=== PATIENT | female | born 1980 | race African-American/Black ===

== ENCOUNTER 2019-08-12 20:13 | Emergency (ER) | payer OTHER ==
[~2019-08-12] VITALS: Ht 165.1 cm; Wt 111.1 kg
--- OUTSIDE RECORDS SUMMARY | 2019-08-12 20:16 | XMS REPORT ---
[facility] Address Unknown Phone Unavailable Care Team Providers Care Flying Squad Worker Name Role Phone RICHARD, FATUMA CHIKA Unavailable Unavailable Payers Payer Name Policy Type Policy Number Effective Date Expiration Date Problems This patient has no known problems. Allergies, Adverse Reactions, Alerts Allergy Name Allergy Type Status Severity Reaction(s) Onset Date Inactive Date Treating Clinician Comments No Known Allergies DA Active U 2019-07-03 00:00:00 No Known Allergies DA Active U 2012-03-15 00:00:00 Medications This patient has no known medications. Results Test Description Test Time Test Comments Text Results Atomic Results Result Comments TROPONIN I RAPID 2019-07-03 11:50:00 TROPONIN I RAPID (test code=TROPIRAP) 0.00 ng/mL 0.00-0.08 RAPID [id number] 08:21:00* Test Item Value Reference Range Comments RAPID CKMB (BEAKER) (test zigb=3719) < ng/mL 0.0-4.3 RAPID TROPONIN [id number] 08:21:00* Test Item Value Reference Range Comments RAPID TROPONIN I (BEAKER) (test ynvv=2965) < ng/mL <0.05 SCREEN, [id number] 08:20:00* Test Item Value Reference Range Comments TEST URINE (BEAKER) (test gqzo=753) Negative CBC W/PLT COUNT & AUTO [id number] 08:17:00* Test Item Value Reference Range Comments WHITE BLOOD CELL COUNT (BEAKER) (test gwuv=413) 5.3 10e3/ L 4.0-10.0 RED BLOOD CELL COUNT (BEAKER) (test lggs=224) 4.43 10e6/ L 4.00-5.00 HEMOGLOBIN (BEAKER) (test ffuv=269) 13.9 g/dL 12.0-15.0 HEMATOCRIT (BEAKER) (test qpfa=526) 41.4 % 36.0-45.0 MEAN CORPUSCULAR VOLUME (BEAKER) (test jzac=762) 93.5 fL 82.0-99.0 MEAN CORPUSCULAR HEMOGLOBIN (BEAKER) (test mxid=608) 31.5 pg 27.0-33.0 MEAN CORPUSCULAR HEMOGLOBIN CONC (BEAKER) (test ihfw=755) 33.7 g/dL 32.0-36.0 RED CELL DISTRIBUTION WIDTH (BEAKER) (test nofl=718) 12.8 % 10.3-14.2 PLATELET COUNT (BEAKER) (test glvt=504) 299 10e3/ L 150-430 MEAN PLATELET VOLUME (BEAKER) (test zxvj=268) 7.3 fL 6.5-10.5 NEUTROPHILS RELATIVE PERCENT (BEAKER) (test tayf=221) 53 % LYMPHOCYTES RELATIVE PERCENT (BEAKER) (test mikm=052) 38 % MONOCYTES RELATIVE PERCENT (BEAKER) (test ttht=133) 7 % EOSINOPHILS RELATIVE PERCENT (BEAKER) (test sbly=963) 2 % BASOPHILS RELATIVE PERCENT (BEAKER) (test wyuw=722) 1 % NEUTROPHILS ABSOLUTE COUNT (BEAKER) (test xlyj=715) 2.83 10e3/ L 1.80-8.00 LYMPHOCYTES ABSOLUTE COUNT (BEAKER) (test brkl=457) 2.00 10e3/ L 1.48-4.50 MONOCYTES ABSOLUTE COUNT (BEAKER) (test ylmw=229) 0.35 10e3/ L 0.00-1.30 EOSINOPHILS ABSOLUTE COUNT (BEAKER) (test mffw=575) 0.09 10e3/ L 0.00-0.50 BASOPHILS ABSOLUTE COUNT (BEAKER) (test hkdj=164) 0.03 10e3/ L 0.00-0.20 PT/[id number] 08:15:00* Test Item Value Reference Range Comments PROTIME (BEAKER) (test hhdj=697) 9.3 seconds 9.8-12.0 INR (BEAKER) (test qnld=566) 0.9 <=5.9 PARTIAL THROMBOPLASTIN TIME (BEAKER) (test fwim=585) 23.5 seconds 25.8-34.5 RECOMMENDED COUMADIN/WARFARIN INR THERAPY RANGESSTANDARD DOSE: 2.0 - 3.0 Inclu juancho: PROPHYLAXIS for venous thrombosis, systemic embolization; TREATMENT for julio césar ous thrombosis and/or pulmonary embolus.HIGH RISK: Target INR is 2.5-3.5 for pat ients with mechanical heart valves.BASIC METABOLIC [id number] 08:12:00* Test Item Value Reference Range Comments SODIUM (BEAKER) (test tsfa=258) 142 meq/L 135-148 POTASSIUM (BEAKER) (test snxs=364) 3.9 meq/L 3.6-5.5 CHLORIDE (BEAKER) (test uzhe=239) 103 meq/L 98-106 CO2 (BEAKER) (test mcui=437) 27 meq/L 24-32 BLOOD UREA NITROGEN (BEAKER) (test uvjw=869) 14 mg/dL 10-26 CREATININE (BEAKER) (test yaoq=303) 1.04 mg/dL 0.50-1.20 GLUCOSE RANDOM (BEAKER) (test prix=653) 99 mg/dL 70-110 CALCIUM (BEAKER) (test ywwx=724) 9.4 mg/dL 8.5-10.5 EGFR (BEAKER) (test hzva=2089) 72 mL/min/1.73 sq m ESTIMATED GFR IS NOT ACCURATE CREATININE CLEARANCE IN PREDICTING GLOMERULAR FILTRATION RATE. ESTIMATED GFR IS NOT APPLICABLE FOR DIALYSIS PATIENTS. CREATINE KINASE (CK)2016-11-09 08:12:00* Test Item Value Reference Range Comments CREATINE KINASE TOTAL (BEAKER) (test krgt=770) 50 U/L 25-235
[2019-08-12] MEDS ORDERED: HYDROCODONE/APAP 5MG-325MG TAB PO ONE (22:00)
[2019-08-12] MEDS ORDERED: PREDNISONE 20 MG TAB PO ONE (22:00)
[2019-08-12] MEDS ORDERED: HYDROCODONE/APAP 5MG-325MG TAB ONE (22:14)
[2019-08-12] MEDS ORDERED: PREDNISONE 20 MG TAB ONE (22:14)
--- NOTE | 2019-08-12 22:58 | Diagnostic Imaging Report ---
X-ray left ankle 3 views; x-ray left foot 3 views HISTORY: Pain. Midfoot pain COMPARISON: None available. FINDINGS: Bones: No acute displaced fracture. Osseous alignment is within normal limits. Joints: The joint spaces are well-maintained. Dorsal tarsal osteophytes. Soft tissues: Achilles and plantar calcaneal calcified enthesophytes. Mild soft tissue swelling of the mid/forefoot. IMPRESSION: 1. No acute radiographic osseous abnormality. 2. Plantar and Achilles tendon calcaneal enthesopathy. 3. Mild soft tissue swelling of the mid/forefoot. 4. Mild degenerative changes in the midfoot. Signed by: Philippe Karimi DO on 08/12/2019 10:55 PM
[2019-08-12] MEDS ORDERED: MEDROL4 MG PO (23:26)
[2019-08-12] MEDS ORDERED: NAPROXEN250 MG PO (23:28)
[2019-08-12] MEDS ORDERED: TYLENOL WITH C1 EACH PO (23:29)
[2019-08-13 03:20] VITALS: BP 119/85
== END 2019-08-13 | disposition home or self-care (01) ==
LOC: FSED 20:13
DX: M25.572 Pain in left ankle and joints of left foot (principal); M19.072 Primary osteoarthritis, left ankle and foot; R26.2 Difficulty in walking, not elsewhere classified; I10 Essential (primary) hypertension
CPT/HCPCS: 73610; 73630; 99283; J7512

== ENCOUNTER 2020-01-29 23:54 | Emergency (ER) | payer BC, OTHER ==
[~2020-01-29] VITALS: Ht 165.1 cm; Wt 106.6 kg
[~2020-01-29 23:54] MED LIST: MEDROL4 MG PO; NAPROXEN250 MG PO; TYLENOL WITH C1 EACH PO
--- OUTSIDE RECORDS SUMMARY | 2020-01-29 23:57 | XMS REPORT | Summary of Care ---
Author Author [facility] Primary Care [facility] Organization [facility] Address Unknown Phone Unavailable Care Team Providers Care Oil Pipeline Dispatcher Name Role Phone Kenzie Simmons PCP Encounter HQ Amberntr_charley(FIN) [id number] Date(s): 12/11/19 - 12/12/[address] [place], [place] [address]- [phone] Vital Signs No data available for this section Problem List Condition Effective Dates Status Health Status Informan t Abnormal cytology 12/05/10 Active findings1 Abnormal vaginal 11/28/12 Active bleeding2 Acute upper Resolved respiratory infection3 Alopecia4 11/04/13 Active Ankle pain5, 6 01/27/15 Active Bacterial vaginosis7 09/28/11 Resolved Benign Active hypertension(Confirm ed)8 Chest pain9 07/30/13 Active Xnnlxwslix50 04/07/14 Active Aaumwm26 12/27/12 Active Electrocardiogram 12/27/12 Active bphjyvng98 Oqfitnlr41 07/30/14 Active Szxnklsyfhmjnh57 02/04/14 Active Hyperlipidemia(Confi Active rmed) Impaired glucose 07/30/14 Active qurdculnq98 Joint pain16, 17 01/27/15 Active Microalbuminuria(Con Active firmed) Microscopic 11/13/14 Active jqrpngsek03, 19 Xxugehh65 12/05/10 Active Otitis qodbyey67 03/18/12 Resolved Patient 05/31/12 Active noncompliance - pruqxan24 Knnqccnxxnk72 03/18/12 Resolved Physical examination 10/30/14 Active awcqihhrz23, 25 Polycystic mfpfaze67 12/27/12 Active Vitamin D 07/30/13 Active vtwmomcirm87 1Data migrated from [employer] on 02/23/15. 2Data migrated from [employer] on 02/23/15. 3Data migrated from [employer] on 04/09/15. 4Data migrated from [employer] on 02/23/15. 5Data migrated from [employer] on 03/31/15. 6Data migrated from [employer] on 02/23/15. 7Data migrated from [employer] on 04/09/15. 8Data migrated from [employer] on 02/23/15. 9Data migrated from [employer] on 02/23/15. 10Data migrated from [employer] on 02/23/15. 11Data migrated from [employer] on 02/23/15. 12Data migrated from [employer] on 02/23/15. 13Data migrated from [employer] on 02/23/15. 14Data migrated from [employer] on 02/23/15. 15Data migrated from [employer] on 02/23/15. 16Data migrated from [employer] on 03/31/15. 17Data migrated from [employer] on 02/23/15. 18Data migrated from [employer] on 03/31/15. 19Data migrated from [employer] on 02/23/15. 20Data migrated from [employer] on 02/23/15. 21Data migrated from [employer] on 04/09/15. 22Data migrated from [employer] on 02/23/15. 23Data migrated from [employer] on 04/09/15. 24Data migrated from [employer] on 03/31/15. 25Data migrated from [employer] on 02/23/15. 26Data migrated from [employer] on 02/23/15. 27Data migrated from [employer] on 02/23/15. Allergies, Adverse Reactions, Alerts No Known Medication Allergies Medications No data available for this section Results No data available for this section Immunizations Given and Recorded Vaccine Date Status Refusal Reason tetanus-diphtheria toxoids1 09/26/10 Given diphtheria/pertussis, acel/tetanus adult2 09/26/10 Given 1Result Comment: adacel. Migrated from OBS VIS: 08-11-08 given September 26, 2010. ; Data migrated from [employer] on 10/25/2015. 2Result Comment: adacel. Migrated from OBS ; Data migrated from [employer] on 10/25/2015. Procedures No data available for this section Social History Social History Type Response Alcohol Current, Type Wine, Liquor. Frequency: 1-2 times per month. Employment/School Status: Employed. Exercise Exercise duration: 60. Exe rcise frequency: 1-2 times/week. Exercise type: Walking.1 Smoking Status Current some day smoker; Ty pe: Cigars; Exposure to Tobacco Smoke None; Exposure to Tobacco Smoke self; Cigaret te Smoking Last 365 Days Yes; Reg Smoking Cessation Counseling Yes2 entered on: 07/07/19 1crunches/push ups 2Patinet states that she smokes cigars sometimes, a few times a month. Assessment and Plan No data available for this section
--- OUTSIDE RECORDS SUMMARY | 2020-01-29 23:57 | XMS REPORT | Summary of Care ---
Author Author [facility] Address Unknown Phone Unavailable Encounter HQ Anali(MARVIN) [id number] Date(s): 03/26/17 - 03/26/17 [facility] [address] [place] [address]- [facility] [phone] Discharge Diagnosis: Actinic otitis externa of left ear Discharge Diagnosis: Acute left otitis media Discharge Disposition: Home or Self Care Attending Physician: Sammy Benavidez MD Vital Signs 1 2 3 Most recent to oldest [Reference Range]: 98.7 DegF (03/26/17 11:38 PM) 98.8 DegF (03/26/17 8:41 PM) Temperature Oral [96.4-99.1 DegF] 163/89 mmHg *HI* (03/26/17 11:38 PM) 160/96 mmHg *HI* (03/26/17 10:16 PM) 212/138 mmHg *HI* (03/26/17 8:41 PM) Blood Pressure [90-140/60-90 mmHg] 18 BRMIN (03/26/17 11:38 PM) 18 BRMIN (03/26/17 10:16 PM) 17 BRMIN (03/26/17 8:41 PM) Respiratory Rate [14-20 BRMIN] 91 bpm (03/26/17 11:38 PM) 88 bpm (03/26/17 10:16 PM) 92 bpm (03/26/17 8:41 PM) Peripheral Pulse Rate [60-100 bpm] 102.075 kg (03/26/17 8:41 PM) Weight Problem List Condition Effective Dates Status Health Status Informan t Abnormal cytology 12/05/10 Active findings1 Abnormal vaginal 11/28/12 Active bleeding2 Acute upper Resolved respiratory infection3 Alopecia4 11/04/13 Active Ankle pain5, 6 01/27/15 Active Bacterial vaginosis7 09/28/11 Resolved Benign hypertension8 Active Chest pain9 07/30/13 Active Zbhvymrcgj43 04/07/14 Active Xdjagw02 12/27/12 Active Electrocardiogram 12/27/12 Active hkbcodmb04 Lcjakhzs06 07/30/14 Active Qbkoyaepfnlkwn15 02/04/14 Active Impaired glucose 07/30/14 Active dnwoicslh90 Joint pain16, 17 01/27/15 Active Microscopic 11/13/14 Active puipwmosg42, 19 Uyzwfyn50 12/05/10 Active Otitis iubhvzd48 03/18/12 Resolved Patient 05/31/12 Active noncompliance - etkaima71 Xtrlwreqgtm99 03/18/12 Resolved Physical examination 10/30/14 Active tulsdexbr88, 25 Polycystic vvofepb78 12/27/12 Active Vitamin D 07/30/13 Active jtrdjdliag95 1Data migrated from [employer] on 02/23/15. [...] [employer] on 02/23/15. Allergies, Adverse Reactions, Alerts Substance Reaction Severity Status NKDA Active Medications Cortisporin Otic solution 2 drp, LEFT EAR, QID, X 7 day, # 10 mL, 0 Refill(s) Start Date: 03/26/17 Stop Date: 04/02/17 Status: Ordered Motrin 800 mg oral tablet 800 mg = 1 tab, PO, Q8H, PRN Pain, Take with food, X 7 day, # 21 tab, 0 Refill(s ) Start Date: 03/26/17 Stop Date: 04/02/17 Status: Ordered penicillin V potassium 500 mg oral tablet 500 mg = 1 tab, PO, BID, X 10 day, # 20 tab, 0 Refill(s) Start Date: 03/26/17 Stop Date: 04/05/17 Status: Ordered tramadol 50 mg oral tablet 50 mg, 1 tab, Route: PO, Drug form: TAB, ONCE, Dosing Weight 102.075, kg, Priori ty: STAT, Start date: 03/26/17 21:51:00 CDT, Stop date: 03/26/17 21:51:00 CDT Notes: Not to exceed 400mg/day. (Same As: Ultram) Start Date: 03/26/17 Stop Date: 03/26/17 Status: Completed tramadol 50 mg oral tablet 50 mg = 1 tab, PO, Q6H, PRN Pain, X 5 day, # 20 tab, 0 Refill(s) Start Date: 03/26/17 Stop Date: 03/31/17 Status: Ordered Tylenol 1,000 mg, 2 tab, Route: PO, Drug form: TAB, ONCE, Dosing Weight 102.075, kg, Sta rt date: 03/26/17 21:51:00 CDT, Stop date: 03/26/17 21:51:00 CDT Notes: Max acetaminophen 4000 mg/day (4 gm/day). (Same as: Tylenol Extra Streng th) Start Date: 03/26/17 Stop Date: 03/26/17 Status: Completed Results No data available for this section Immunizations Given and Recorded Vaccine Date Status Refusal Reason diphtheria/pertussis, acel/tetanus adult1 09/26/10 Given tetanus-diphtheria toxoids2 09/26/10 Given 1Result Comment: adacel. Migrated from OBS ; Data migrated from [employer] on 10/25/2015. 2Result Comment: adacel. Migrated from [employer] VIS: 08-11-08 given September 26, 2010. ; Data migrated from [employer] on 10/25/2015. Procedures No data available for this section Social History Social History Type Response Exercise Exercise duration: 60. Exe rcise frequency: 1-2 times/week. Exercise type: Walking.1 Employment/School Status: Employed. Alcohol Current, Type Wine, Liquor. Frequency: 1-2 times per month. Smoking Status Never smoker; Exposure to T obacco Smoke None; Cigarette Smoking Last 365 Days No; Reg Smoking Cessation Counseli ng No 1crunches/push ups Assessment and Plan No data available for this section
--- OUTSIDE RECORDS SUMMARY | 2020-01-29 23:57 | XMS REPORT | Summary of Care ---
Author Author [facility] Organization [facility] Address Unknown Phone Unavailable Encounter HQ Anali(FIN) [id number] Date(s): 04/19/17 - 04/19/17 [facility] [address] [facility] [address] [place], [place] [address] [phone] Discharge Disposition: Home or Self Care Attending Physician: Kenzie Simmons MD Vital Signs No data available for this section Problem List Condition Effective Dates Status Health Status Informan t Abnormal cytology 12/05/10 Active findings1 Abnormal vaginal 11/28/12 Active bleeding2 Acute upper Resolved respiratory infection3 Alopecia4 11/04/13 Active Ankle pain5, 6 01/27/15 Active Bacterial vaginosis7 09/28/11 Resolved Benign hypertension8 Active Chest pain9 07/30/13 Active Lodpbjwyxp54 04/07/14 Active Vohzvm79 12/27/12 Active Electrocardiogram 12/27/12 Active spcemwhi75 Yytyvnre54 07/30/14 Active Mzjiinnzfpolth80 02/04/14 Active Impaired glucose 07/30/14 Active qejclhcum69 Joint pain16, 17 01/27/15 Active Microscopic 11/13/14 Active kdzlehrgd81, 19 Pehywiy85 12/05/10 Active Otitis tauopcf20 03/18/12 Resolved Patient 05/31/12 Active noncompliance - bcfteuj36 Qmawukwrmgs07 03/18/12 Resolved Physical examination 10/30/14 Active zzkjnilat17, 25 Polycystic mhwbmio47 12/27/12 Active Vitamin D 07/30/13 Active odcnxxcjzz63 1Data migrated from [employer] on 02/23/15. [...] Substance Reaction Severity Status NKDA Active Medications No data available for this section Results No data available for this section Immunizations Given and Recorded Vaccine Date Status Refusal Reason diphtheria/pertussis, acel/tetanus adult1 09/26/10 Given tetanus-diphtheria toxoids2 09/26/10 Given 1Result Comment: adacel. Migrated from OBS ; Data migrated from [employer] on 10/25/2015. 2Result Comment: adacel. Migrated from OBS VIS: 08-11-08 given September 26, 2010. ; Data migrated from [employer] on 10/25/2015. Procedures No data available for this section Social History Social History Type Response Exercise Exercise duration: 60. Exe rcise frequency: 1-2 times/week. Exercise type: Walking.1 Employment/School Status: Employed. Alcohol Current, Type Wine, Liquor. Frequency: 1-2 times per month. Smoking Status Never smoker; Type: Cigaret leatha; Exposure to Tobacco Smoke None; Cigarette Smoking Last 365 Days No; Reg Smoking C essation Counseling No 1crunches/push ups Assessment and Plan No data available for this section
--- OUTSIDE RECORDS SUMMARY | 2020-01-29 23:57 | XMS REPORT | Clinical Summary ---
Author Author [facility] Address Unknown Phone Unavailable Care Team Providers Care Bicycle Courier Name Role Phone Kenzie Simmons PCP Unavailable Allergies No Known Allergies Medications End Date Status Medication Sig Dispensed Refills Start Date Active hydrochlorothiazide 0 (HYDRODIURIL) 25 MG 5 tablet Active lisinopril 30 mg . 0 (PRINIVIL,ZESTRIL) 20 MG 5 tablet Active Problems Not on file Family History Medical History Relation Name Comments Cancer Mother Hypertension Mother Relation Name Status Comments Mother Social History Date Tobacco Use Types Packs/Day Years Used Never Smoker Smokeless Tobacco: Never Used Alcohol Use Drinks/Week oz/Week Comments Yes Sex Assigned at Date Recorded Not on file Industry Job Start Date Occupation Not on file Not on file Not on file Travel End Travel History Travel Start No recent travel history available. Last Filed Vital Signs Not on file Plan of Treatment Not on file Results Not on fileafter 01/28/2019
--- OUTSIDE RECORDS SUMMARY | 2020-01-29 23:57 | XMS REPORT | Summary of Care ---
Author Author [facility] Primary Care [facility] Organization [facility] Primary [facility] Address Unknown Phone Unavailable Care Team Providers Care Roll Plugger Machine Operator Name Role Phone Kenzie Simmons PCP Encounter HQ Amberntr_charley(FIN) [id number] Date(s): 12/11/19 - 12/12/[address] [place], [place] [address]- [phone] Vital Signs No data available for this section Problem List Condition Effective Dates Status Health Status Informan t Abnormal cytology 12/05/10 Active findings1 Abnormal vaginal 11/28/12 Active bleeding2 Acute upper Resolved respiratory infection3 Alopecia4 11/04/13 Active Ankle pain5, 6 01/27/15 Active Bacterial vaginosis7 09/28/11 Resolved Benign Active hypertension(Confirm ed)8 Chest pain9 07/30/13 Active Bwtrphkyng94 04/07/14 Active Szkdwr07 12/27/12 Active Electrocardiogram 12/27/12 Active umuancvv45 Mealaigl06 07/30/14 Active Lkzfdsksxbpmfd19 02/04/14 Active Hyperlipidemia(Confi Active rmed) Impaired glucose 07/30/14 Active aogvlamdl52 Joint pain16, 17 01/27/15 Active Microalbuminuria(Con Active firmed) Microscopic 11/13/14 Active htdljefhk01, 19 Thrgihw77 12/05/10 Active Otitis kevaglh25 03/18/12 Resolved Patient 05/31/12 Active noncompliance - bskymrx31 Xloqiftmbkb36 03/18/12 Resolved Physical examination 10/30/14 Active sbgudlpaq75, 25 Polycystic owdaxxe42 12/27/12 Active Vitamin D 07/30/13 Active ugqecyfmdc60 1Data migrated from [employer] on 02/23/15. [...]
--- OUTSIDE RECORDS SUMMARY | 2020-01-29 23:57 | XMS REPORT | Summary of Care ---
Author Author [facility] Primary Care [facility] Organization [facility] Address Unknown Phone Unavailable Care Team Providers Care It Programmer Name Role Phone Kenzie Simmons PCP Encounter HQ Amberntr_charley(FIN) [id number] Date(s): 12/11/19 - 12/12/[address] [place], [place] [address]- [phone] Vital Signs No data available for this section Problem List Condition Effective Dates Status Health Status Informan t Abnormal cytology 12/05/10 Active findings1 Abnormal vaginal 11/28/12 Active bleeding2 Acute upper Resolved respiratory infection3 Alopecia4 11/04/13 Active Ankle pain5, 6 01/27/15 Active Bacterial vaginosis7 09/28/11 Resolved Benign Active hypertension(Confirm ed)8 Chest pain9 07/30/13 Active Wlbeyvjirg85 04/07/14 Active Erwumj29 12/27/12 Active Electrocardiogram 12/27/12 Active igtbhpmx41 Avyfomcs00 07/30/14 Active Uoafsprvcuxyau43 02/04/14 Active Hyperlipidemia(Confi Active rmed) Impaired glucose 07/30/14 Active qypsqhrqg91 Joint pain16, 17 01/27/15 Active Microalbuminuria(Con Active firmed) Microscopic 11/13/14 Active atjgvmjif50, 19 Nghgdwj72 12/05/10 Active Otitis gximmnt09 03/18/12 Resolved Patient 05/31/12 Active noncompliance - fvebvzp57 Walsvdrqxkh78 03/18/12 Resolved Physical examination 10/30/14 Active rhtybnooz27, 25 Polycystic xdrpaig88 12/27/12 Active Vitamin D 07/30/13 Active qgcyxbrtid99 1Data migrated from [employer] on 02/23/15. [...] Reactions, Alerts No Known Medication Allergies Medications Xanax 0.25 mg oral tablet See Instructions, 1 tab po once. Take 1 h prior to procedure, # 1 ea, 0 Refill( s), Pharmacy: [id number] Start Date: 12/11/19 Stop Date: 12/13/19 Status: Completed Results No data available for this section Immunizations Given and Recorded Vaccine Date Status Refusal Reason tetanus-diphtheria toxoids1 09/26/10 Given diphtheria/pertussis, acel/tetanus adult2 09/26/10 Given 1Result Comment: adacel. Migrated from OBS VIS: 08-11-08 given September 26, 2010. ; Data migrated from [employer] on 10/25/2015. 2Result Comment: adatrevor. Migrated from OBS ; Data migrated from [employer] on 10/25/2015. Procedures No data available for [...]
--- OUTSIDE RECORDS SUMMARY | 2020-01-29 23:57 | XMS REPORT | Continuity of Care Document ---
Author Author Press About UsROSA Organization Press About Us Address Unknown Phone Unavailable Care Team Providers Care Raw Scales Operator Name Role Phone [employer] Information Exchange Unavailable Un available Problems Problem Status Onset Date Classification Date Reported Comments Source R92.8 - OTH ABN AND INCONCLUSIVE FINDI Active 12/23/2018 [facility] Chronic kidney disease, unspecified 10/27/2018 05/13/2019 [facility] HTN Active 0 03/06/2018 [facility] Hypertensive urgency 03/06/2018 03/09/2018 [facility] N63 - UNSPECIFIED LUMP IN BREAST Active 04/19/2017 [facility] Other otitis externa, left ear 03/26/2017 03/29/[address] [facility] Otitis media, unspecified, left ear 03/26/2017 03/29/[address] [facility] L EAR INFECTION Active 03/26/2017 [facility] Discharge Diagnosis: Paronychia of right index finger 09/07/2016 09/10/2016 [facility] INDEX FINGER PAIN Active 09/07/2016 [facility] EAR PAIN Active 08/22/2016 [facility] Ankle pain (finding) Active 01/27/2015 Problem 01/22/2020 Data migrated from [employer] on . Data migrated from [employer] on 02/23/15. Medical Group, [facility] Joint pain (finding) Active 01/27/2015 Problem 01/22/2020 Data migrated from [employer] on . Data migrated from [employer] on 02/23/15. [facility] GroupROGERIO [facility] Microscopic hematuria (disorder) Active 11/13/2014 Problem 01/22/2020 Data migrated from [employer] on . Data migrated from [employer] on 02/23/15. Jason Russo [facility] Physical examination procedure (procedure) Active 10/30/2014 Problem 01/22/2020 Data migrated from [employer] on 03/31/15. Data migrated from [employer] on 02/23/15. Medical Group,[facility], [facility] Furuncle (disorder) Active 07/30/2014 Problem 01/22/2020 Data migrated from [employer] on . Medical Group,[facility], [facility] Impaired glucose tolerance (disorder) Active 07/30/2014 Problem 01/22/2020 Data migrated from [employer] on . Medical Group,[facility], [facility] Dermatitis (disorder) Active 04/07/2014 Problem 01/22/2020 Data migrated from [employer] on . Medical Group,[facility], [facility] Hyperlipidemia (disorder) Acti ve 02/04/2014 Problem 01/22/2020 Data migrated from [employer] on . Medical Group,[facility], [facility] Alopecia (disorder) Active 11/04/2013 Problem 01/22/2020 Data migrated from [employer] on . Medical Group,[facility], [facility] Chest pain (finding) Active 07/30/2013 Problem 01/22/2020 Data migrated from [employer] on . Medical Group,[facility], [facility] Vitamin D deficiency (disorder) Active 07/30/2013 Problem 01/22/2020 Data migrated from [employer] on . Medical Group,[facility], [facility] Eczema (disorder) Active 12/27/2012 Problem 01/22/2020 Data migrated from [employer] on . Medical Group,[facility], [facility] Abnormal ECG (finding) Active 12/27/2012 Problem 01/22/2020 Data migrated from [employer] on . Medical Group,[facility], [facility] Polycystic ovaries (disorder) Active 12/27/2012 Problem 01/22/2020 Data migrated from [employer] on . Medical Group,[facility], [facility] Abnormal vaginal bleeding (finding) Active 11/28/2012 Problem 01/22/2020 Data migrated from [employer] on . Medical Group,[facility], [facility] Patient non-compliance - general (contex t-dependent category) Active 05/31/2012 Problem 01/22/2020 Data migrated from [employer] on 02/23/15. Medical Group,[facility] Otitis externa (disorder) Reso lved 03/18/2012 Problem 01/22/2020 Data migrated from [employer] on 04/09. Medical Group,[facility], [facility] Pharyngitis (disorder) Resolved 03/18/2012 Problem 01/22/2020 Data migrated from [employer] on 04/09. Medical Group,[facility], [facility] Bacterial vaginosis (disorder) Resolved 09/28/2011 Problem 01/22/2020 Data migrated from [employer] on 04/09. Medical Group,[facility], [facility] Abnormal cytology findings (finding) Active 12/05/2010 Problem 01/22/2020 Data migrated from [employer] on . Medical Group,[facility], [facility] Obesity (disorder) Active 12/05/2010 Problem 01/22/2020 Data migrated from [employer] on . Medical Group,[facility], [facility] Acute upper respiratory infection (disorder) Resolved Problem 01/22/2020 Data migrated from [employer] on 04/09. Medical Group,[facility], [facility] Benign hypertension (disorder) Active Problem Data migrated from [employer] on . Medical Group,[facility], [facility] Microalbuminuria (finding) Act qi Problem [facility], [facility] Medications Medication Details Route Status Patient Instructions Ordering Provider Order Date Source Diclofenac Sodium 0.01 MG/MG Topical Gel [Voltaren] See Instructions, PRN for pain, 4 gm appl TOP QID, # 100 gm, 0 Refill(s), Pharmacy: [facility] Active 01/20/2020 [facility] amLODIPine 10 mg oral tablet 1 0 mg = 1 tab, PO, Daily, # 90 tab, 1 Refill(s), Pharmacy: [facility] Active 12/25/2019 [facility] Group Hydrochlorothiazide 25 MG Oral Tablet = 1 tab, PO, Daily, # 90 tab, 1 Refill(s), Pharmacy: [facility] Active 12/25/2019 [facility] Group lisinopril 40 mg oral tablet = 1 tab, PO, Daily, # 90 tab, 1 Refill(s), Pharmacy: [facility] Active 12/25/2019 [facility] Fish Oil 1000 mg oral capsule 1,000 mg = 1 cap, PO, BID, 0 Refill(s) Active 12/25/2019 [facility] Alprazolam 0.25 MG Oral Tablet [Xanax] See Instructions, 1 tab po once. Take 1 h prior to procedure, # 1 ea, 0 Refill(s), Pharmacy: [facility] No Longe r Active 12/11/2019 [facility] lisinopril 40 mg oral tablet 4 0 mg = 1 tab, PO, Daily, # 90 tab, 0 Refill(s), Pharmacy: [facility] Active 07/07/2019 [facility] Hydrochlorothiazide 25 MG Oral Tablet = 1 tab, PO, Daily, # 90 tab, 1 Refill(s), Pharmacy: [facility] Active 07/07/2019 [facility] amLODIPine 10 mg oral tablet 1 0 mg = 1 tab, PO, Daily, # 90 tab, 1 Refill(s), Pharmacy: [facility] Active 07/07/2019 [facility] lisinopril 40 mg oral tablet 4 0 mg = 1 tab, PO, Daily, # 90 tab, 0 Refill(s), Pharmacy: [facility] Active 03/15/2019 [facility] atorvastatin 20 mg oral tablet = 1 tab, PO, Bedtime, # 90 tab, Pharmacy: [facility] Active 02/24/2019 [facility] Hydrochlorothiazide 25 MG Oral Tablet 25 mg = 1 tab, PO, Daily, # 90 tab, 0 Refill(s), Pharmacy: [id number], due for an appt. Active 12/23/2018 [facility] amLODIPine 10 mg oral tablet 1 0 mg = 1 tab, PO, Daily, # 90 tab, 0 Refill(s), Pharmacy: [id number] Active 12/23/2018 [facility] Group amLODIPine 5 mg oral tablet 5 mg = 1 tab, PO, Daily, # 90 tab, 0 Refill(s) Inactive 12/23/2018 [facility] Group lisinopril 40 mg oral tablet 4 0 mg = 1 tab, PO, Daily, # 90 tab, 0 Refill(s), Pharmacy: [id number] Active 11/21/2018 [facility] atorvastatin 20 mg oral tablet 20 mg = 1 tab, PO, Bedtime, # 90 tab, 0 Refill(s), Pharmacy: [facility] No Longer Active 10/21/2018 [facility] lisinopril 30 mg oral tablet 3 0 mg = 1 tab, PO, Daily, # 90 tab, 0 Refill(s), Pharmacy: [facility] No Longer Active 10/09/2018 [facility] Hydrochlorothiazide 25 MG Oral Tablet 25 mg = 1 tab, PO, Daily, # 90 tab, 0 Refill(s), Pharmacy: [facility], due for an appt. No Longer Active 10/09/2018 [facility] Tylenol 975 mg, Route: PO, Sukhwinder g form: TAB, ONCE, Dosing Weight 108.636, kg, Priority: STAT, Start date: 03/06/18 17:52:00 CDT, Stop date: 03/06/18 17:52:00 CDT Inactive 03/06/2018 [facility] lisinopril 30 mg oral tablet 3 0 mg = 1 tab, PO, Daily, # 90 tab, 0 Refill(s), Pharmacy: [facility] Active 03/06/2018 [facility] Hydrochlorothiazide 25 MG Oral Tablet 25 mg = 1 tab, PO, Daily, # 90 tab, 0 Refill(s), Pharmacy: [facility], due for an appt. Active 03/06/2018 [facility] Hydrocortisone 25 MG/ML Topical Cream 1 appl, TOP, BID, PRN dermatitis, # 30 gm, 0 Refill(s), Pharmacy: [facility] Inactive 03/06/2018 [facility] Saline Flush 0.9% Notes: (Same as: BD Posiflush) Inactive 03/06/2018 [facility] lisinopril 30 mg oral tablet S ee Instructions, TAKE ONE TABLET BY MOUTH ONCE DAILY, # 7 tab, 0 Refill(s), Pharmacy: [id number] No Longer Active 11/30/2017 [facility] Hydrochlorothiazide 25 MG Oral Tablet See Instructions, TAKE ONE TABLET BY MOUTH ONCE DAILY, # 7 tab, 0 Refill(s), Pharmacy: [id number] No Longer Active 11/30/2017 [facility] Hydrocortisone 10 MG/ML / Neomycin 3.5 M G/ML / Polymyxin B 08447 UNT/ML Otic Solution [Cortisporin Otic] 2 drp, LEFT EAR, QID, X 7 day, # 10 mL, 0 Refill(s) Active 03/27/[address] [facility] Penicillin V Potassium 500 MG Oral Tablet 500 mg = 1 tab, PO, BID, X 10 day, # 20 tab, 0 Refill(s) Active 03/27/[address] [facility] tramadol hydrochloride 50 MG Oral Tablet 50 mg = 1 tab, PO, Q6H, PRN Pain, X 5 day, # 20 tab, 0 Refill(s) Active 03/27/[address] [facility] Motrin 800 mg oral tablet 800 mg = 1 tab, PO, Q8H, PRN Pain, Take with food, X 7 day, # 21 tab, 0 Refill(s) Active 03/27/[address] [facility] Tylenol Notes: Max acetaminoph en 4000 mg/day (4 gm/day). (Same as: Tylenol Extra Strength) Inactive 03/27/[address] [facility] tramadol hydrochloride 50 MG Oral Tablet Notes: Not to exceed 400mg/day. (Same As: Ultram) Inactive 03/27/[address] [facility] tramadol hydrochloride 50 MG Oral Tablet 50 mg = 1 tab, PO, BID, X 15 day, # 30 tab, 0 Refill(s) Active 09/07/[address] [facility] clindamycin 300 mg oral capsule 300 mg = 1 cap, PO, Q6H, X 10 day, # 40 cap, 0 Refill(s) Active 09/07/[address] [facility] Clindamycin Notes: (Same As: C leocin) Inactive 09/07/[address] [facility] Motrin 600 mg oral tablet 600 mg = 1 tab, PO, Q6H, take with food, X 5 day, # 20 tab, 0 Refill(s) Active 08/22/[address] [facility] amoxicillin 875 mg oral tablet 875 mg = 1 tab, PO, Q12H, X 10 day, # 20 tab, 0 Refill(s) Active 08/22/[address] [facility] Ciprofloxacin 2 MG/ML / Hydrocortisone 1 0 MG/ML Otic Suspension [Cipro HC] 3 drp, RIGHT EAR, BID, X 10 day, # 10 ml , 0 Refill(s) Active 08/22/[address] [facility] Allergies, Adverse Reactions, Alerts Substance Category Reaction Severity Reaction type Status Date Reported Comments Source No Known Medication Allergies Assertion Drug aller gy [facility] Immunizations Immunization Date Given Site Status Last Updated Comments Source tetanus-diphtheria toxoids<sup>2</sup> 09/26/2010 Right Deltoid completed GE Result Comment: adacel. Bryant rated from OBS VIS: 08-11-08 given September 26, 2010. ; Data migrated from [employer] on 10/25/2015. [facility] tetanus-diphtheria toxoids<sup>1</sup> 09/26/2010 Right Deltoid completed GE Result Comment: adacel. Bryant rated from OBS VIS: 08-11-08 given September 26, 2010. ; Data migrated from [employer] on 10/25/2015. [facility] diphtheria/pertussis, acel/tetanus adult<sup>1</sup> 09/26/2010 completed GE Result Comment: adacel. Bryant rated from OBS ; Data migrated from [employer] on 10/25/2015. [facility] diphtheria/pertussis, acel/tetanus adult<sup>2</sup> 09/26/2010 completed GE Result Comment: adacel. Bryant rated from OBS ; Data migrated from [employer] on 10/25/2015. [facility] Results Order Name Results Value Reference Range Date Interpretation Comments Source CARDIAC ENZYMES CK MB Index <0.5 0.0 - 2.5 03/06/2018 [facility] CARDIAC ENZYMES Total CK 95 12 - 191 03/06/2018 [facility] CARDIAC ENZYMES Troponin-I <0.02 0.00 - 0.40 03/06/2018 [facility] CARDIAC ENZYMES CK MB <0.5 0.5 - 3.6 03/06/2018 [facility] CHEM PANEL eGFR 47 03/06/2018 Result Comment: The eGFR is calculated using the CKD-EPI formula. In most young, healthy individuals the eGFR will be >90 mL/min/1.73m2. The eGFR declines with age. An eGFR of 60-89 may be normal in some populations, particularly the elderly, for whom the CKD-EPI formula has not been extensively validated. Use of the eGFR is not recommended in the following populations:

Individuals with unstable creatinine concentrations, including patients and those with serious co-morbid conditions.

Patients with extremes in muscle mass or diet.

The data above are obtained from the National Kidney Disease Education Program (NKDEP) which additionally recommends that when the eGFR is used in patients with extremes of body mass index for purposes of drug dosing, the eGFR should be multiplied by the estimated BMI. [facility] CHEM PANEL B/C Ratio 11 6 - 25 03/06/2018 [facility] CHEM PANEL AGAP 10.3 10.0 - 20.0 03/06/2018 [facility] CHEM PANEL Globulin 4.1 2.7 - 4.2 03/06/2018 [facility] CHEM PANEL A/G Ratio 0.9 0.7 - 1.6 03/06/2018 [facility] CHEM PANEL Alk Phos 49 39 - 136 03/06/2018 [facility] CHEM PANEL Bili Total 0.5 0.2 - 1.3 03/06/2018 [facility] CHEM PANEL BUN 16 7 - 22 03/06/2018 [facility] CHEM PANEL Creatinine Lvl 1.40 0.50 - 1.40 03/06/2018 [facility] CHEM PANEL Glucose Lvl 93 70 - 99 03/06/2018 [facility] CHEM PANEL Sodium Lvl 141 135 - 145 03/06/2018 [facility] CHEM PANEL Chloride Lvl 105 95 - 109 03/06/2018 [facility] CHEM PANEL Potassium Lvl 3.3 3.5 - 5.1 03/06/2018 [facility] CHEM PANEL Total Protein 7.7 6.4 - 8.4 03/06/2018 [facility] CHEM PANEL Calcium Lvl 8.5 8.5 - 10.5 03/06/2018 [facility] CHEM PANEL CO2 29 24 - 32 03/06/2018 [facility] CHEM PANEL ALT 16 0 - 65 03/06/2018 [facility] CHEM PANEL Albumin Lvl 3.6 3.5 - 5.0 03/06/2018 [facility] CHEM PANEL AST 16 0 - 37 03/06/2018 [facility] HEMATOLOGY Basophils # 0.0 0.0 - 0.2 03/06/2018 [facility] HEMATOLOGY Eosinophils # 0.0 0.0 - 0.5 03/06/2018 [facility] HEMATOLOGY Lymphocytes # 2.3 1.0 - 5.5 03/06/2018 [facility] HEMATOLOGY Monocytes # 0.4 0.0 - 0.8 03/06/2018 [facility] HEMATOLOGY Eosinophils 0.7 0.0 - 4.0 03/06/2018 [facility] HEMATOLOGY Basophils 0.7 0.0 - 1.0 03/06/2018 [facility] Segs-Bands # 3.3 1.5 - 8.1 03/06/2018 [facility] Lymphocytes 37.5 20.0 - 40.0 03/06/2018 [facility] Monocytes 6.7 2.0 - 12.0 03/06/2018 [facility] Segs 54.4 45.0 - 75.0 03/06/2018 [facility] MPV 8.2 7.4 - 10.4 03/06/2018 [facility] Platelet 255 133 - 450 03/06/2018 [facility] MCHC 32.8 32.0 - 36.0 03/06/2018 [facility] HEMATOLOGY RDW 14.2 11.5 - 14.5 03/06/2018 [facility] MCV 93.6 80.0 - 98.0 03/06/2018 [facility] MCH 30.7 27.0 - 31.0 03/06/2018 [facility] Hgb 12.6 12.0 - 16.0 03/06/2018 [facility] HEMATOLOGY Hct 38.4 36.0 - 48.0 03/06/2018 [facility] RBC 4.10 4.20 - 5.40 03/06/2018 [facility] HEMATOLOGY WBC 6.1 3.7 - 10.4 03/06/2018 [facility] URINE AND STOOL UA Urobilinogen <=1.0 mg/dL 0.1 - 1.0 03/06/2018 [facility] URINE AND STOOL UA RBC 2 0 - 2 03/06/2018 [facility] URINE AND STOOL UA Sq Epi Many /LPF Few /LPF 03/06/2018 [facility] URINE AND STOOL UA Protein 30 mg/dL Negative mg/dL 03/06/2018 [facility] URINE AND STOOL UA Glucose Negative mg/dL Negative mg/dL 03/06/2018 [facility] URINE AND STOOL UA Ketones Negative mg/dL Negative mg/dL 03/06/2018 [facility] URINE AND STOOL UA Leuk Est Negative (03/06/18 6:02 PM) Negative 03/06/2018 [facility] URINE AND STOOL UA Color Light Yellow *NA* (03/06/18 6:02 PM) Yellow 03/06/2018 [facility] URINE AND STOOL UA Turbidity Clear (03/06/18 6:02 PM) Clear 03/06/2018 [facility] URINE AND STOOL UA Bili Negative *NA* (03/06/18 6:02 PM) Negative 03/06/2018 [facility] URINE AND STOOL UA Blood Moderate *ABN* (03/06/18 6:02 PM) Negative 03/06/2018 [facility] URINE AND STOOL UA Nitrite Negative (03/06/18 6:02 PM) Negative 03/06/2018 [facility] URINE AND STOOL UA Spec Grav 1.011 <=1.030 03/06/2018 [facility] URINE AND STOOL UA pH 7.0 5.0 - 8.0 03/06/2018 [facility] URINE CHEM U Preg Negat qi (03/06/18 6:02 PM) Negative 03/06/2018 [facility] Pathology Reports No Data Provided for This Section Diagnostic Reports Report Value Date Source Breast BX Uni w Clip Primary Side US MULTIPLE ULTRASOUND GUIDED BIOPSIES LEFT BREAST WITH MARKING DEVICES INSERTED AND POST DIGITAL MAMMOGRAPHIC IMAGIN12/12/2019 CLINICAL: /R92.8 Other Abnormal And Inconclusive Findings On Diagnostic Imaging Of Breast. PATIENT CONSENT: Following discussion of the indications, risks and benefits of the procedure, informed written consent was obtained. Correlation is made to exams dated: 12/12/2019 ultrasound, 12/12/2019 mammogram, 12/23/2018 ultrasound, 12/23/2018 mammogram, 04/19/2017 ultrasound, and 04/19/2017 mammogram - [facility]. An ultrasound guided biopsy using real-time ultrasound was performed for the 0.6 cm x 2.8 cm x 0.4 cm mass located in the left breast at 12 o'clock in the retroareolar region. This was described on the previous ultrasound report. The skin was prepped in the usual manner. Local anesthetic was administered to the access site. A skin georgina was made in the breast. The abnormality was approach ed from the lateral aspect. A 14 gauge biopsy needle was placed adjacent to the abnormality under ultrasound guidance. Once the needle was documented to be in the correct location, four specimens were obtained using an Achieve automated firing device. A coil shaped clip was inserted into the biopsy cavity. A skin adhesive and a sterile dressing were applied to the access site. Post procedure digital mammographic imaging demonstrates the clip at the targeted area. The specimens were sent to the laboratory for pathological analysis. A second ultrasound guided biopsy using real-time ultrasound was performed for the 3.4 cm x 0.4 cm x 0.4 cm mass located in the left breast at 1 o'clock middle depth 7 cm from the nipple. This was described on the previous ultrasound report. The skin was prepped in the usual manner. Local anesthetic was administered to the access site. A skin georgina was made in the breast. The abnormality was approached from the lateral aspect. A 14 gauge biopsy needle was placed adjacent to the abnormality under ultrasound guidance. Once the needle was documented to be in the correct location, four specimens were obtained using an Achieve automated firing device. A wing shaped clip was inserted into the biopsy cavity. A skin adhesive and a sterile dressing were applied to the access site. Post procedure digital mammographic imaging demonstrates the clip at the targeted area. The specimens were sent to the laboratory for pathological analysis. IMPRESSION: ULTRASOUND GUIDED BIOPSY BENIGN RECOMMENDATION:Ultrasound guided biopsy of the 0.6 cm x 2.8 cm x 0.4 cm mass in the left breast at 12 o'clock in the retroareolar region was successful with no apparent post procedure complications. Pathology indicates benign intraductal papilloma (IP) with no histiologic atypia present. Pathology results are concordant with imaging findings. A surgical consultation is recommended. Ultrasound guided biopsy of the 3.4 cm x 0.4 cm x 0.4 cm mass in the left breast at 1 o'clock middle depth 7 cm from the nipple was successful with no apparent post procedure complications. Pathology indicates benign intraductal papilloma (IP) with no histiologic atypia present. Pathology results are concordant with imaging findings. A surgical consultation is recommended. This exam was interpreted at [id number] at [facility]. SUMMARY: Dr. Bynum communicated the above pathology findings to Dr. Simmons via [employer] secure text messaging on 12/17/19 at 0916 am. Professional services are provided by the [facility]. Micheal hunter,baylee/yordy:12/17/2019 09:23:22 Package Clerk(s): Maureen De Los Santos RDMS, [facility] letter sent: Surgical Consult Post Bx 12/12/2019 [facility] Breast Complete Uni US COMPLETE ULTRASOUND OF LEFT BREAST AND AXILLA: 12/12/2019 CLINICAL: /R92.8 Other Abnormal And Inconclusive Findings On Diagnostic Imaging Of Breast. COMPARISON:Comparison is made to exams dated: 12/12/2019 mammogram, 12/23/2018 ultrasound, 12/23/2018 mammogram, 04/19/2017 ultrasound, and 04/19/2017 mammogram - [facility]. TECHNIQUE: Color flow and real-time ultrasound of the left breast four quadrants and axilla regions were performed. The infraclavicular and internal mammary clarice basins were examined. Gary scale images of the real-time examination were reviewed. FINDINGS: There is 0.6 cm x 2.8 cm x 0.4 cm intraductal mass in the left breast at 12 o'clock in the retroareolar region. There also is 3.4 cm x 0.4 cm x 0.4 cm intraductal mass in the left breast at 1 o'clock 7 cm from the nipple. There is a 0.7 x 0.3 x 0.6 cm intraductal mass in the left breast at 12 o'clock 7 cm from the nipple. These masses are all within a same ectatic duct segment. The examined clarice basins are within normal limits. IMPRESSION: SUSPICIOUS OF MALIGNANCY RECOMMENDATION: Multiple intraductal masses in the same ectatic duct segment, as detailed above. Ultrasound guided biopsies of the largest and furthest masses at 12 o'clock retroareolar and at 1 o'clock 7 cm from the nipple are recommended. This exam was interpreted at [id number] at [facility]. SUMMARY: The findings and recommendations were discussed with the patient at the time of examination. Biopsy will be performed at this time. Professional services are provided by the [facility] Division of Diagnostic Imaging. Micheal Jin M.D. ks/:12/12/2019 11:01:20 Package Clerk(s): Maureen De Los Santos RDMS, [facility] Ultrasound BI-RADS: 4 Suspicious abnormality 12/12/2019 [facility] Breast Mammo Diag KALEB w delgado incl CAD MA BILATERAL DIGITAL DIAGNOSTIC MAMMOGRAM 3D/2D WITH CAD: 12/12/2019 CLINICAL: /R92.8 Other Abnormal And Inconclusive Findings On Diagnostic Imaging Of Breast. Current study was evaluated with a Computer Aided Detection (CAD) system. COMPARISON:Comparison is made to exams dated: 12/23/2018 mammogram and 04/19/2017 mammogram - [facility]. TECHNIQUE: Digital Breast Tomosynthesis was performed and utilized for Interpretation. Current study was also evaluated with a Computer Aided Detection (CAD) system. FINDINGS: There are scattered fibroglandular densities in both breasts. There is an ectatic duct in the left breast at 12 o'clock in the retroareolar region. This is not significantly changed. No other significant masses, calcifications, or other findings are seen in either breast. IMPRESSION: INCOMPLETE: NEEDS ADDITIONAL IMAGING EVALUATION RECOMMENDATION:The ectatic duct in the left breast is indeterminate. An ultrasound is recommended. This exam was interpreted at [id number] at [facility]. SUMMARY: Ultrasound will be performed at this time; please see separate report. Professional services are provided by the [facility] Division of Diagnostic Imaging. Micheal Jin M.D. ks/penrad:12/12/2019 10:32:09 Package Clerk(s): Yessenia Pickard, [facility] Mammogram BI-RADS: 0 Indeterminate 12/12/2019 [facility] Breast Complete Uni US COMPLETE ULTRASOUND OF LEFT BREAST AND AXILLA- CLARICE BASIN: 12/23/2018 CLINICAL: /N64.52 Nipple Discharge. COMPARISON:Comparison is made to exams dated: 12/23/2018 mammogram, 04/19/2017 ultrasound, and 04/19/2017 mammogram - [facility]. Technique: Real-time sonographic imaging of the left breast was performed to include the axillary,infraclavicular and internal mammary clarice basins. Images were obtained in multiple scanning planes. FINDINGS: There is 2 cm x 0.5 cm x 0.4 cm intraductal mass in the left breast central to the nipple in the retroareolar region. This intraductal mass is hypoechoic and not significantly changed. This correlates with the nipple discharge. Color flow imaging demonstrates that there is vascularity present. Biopsy was not previously performed. There also is 2.5 cm x 0.5 cm x 0.4 cm intraductal mass in the left breast at 1 o'clock middle depth 7 cm from the nipple. This intraductal mass is hypoechoic. Color flow imaging demonstrates that there is no vascularity present. This mass is 7 cm away from the aforementioned mass. Multiple additional debris containing ectactic retroareolar ducts are noted. MRI may be needed to evaluate extent of disease prior to surgery. This was discussed with the patient. There is no lymphadenopathy in the visualized clarice basins. IMPRESSION: SUSPICIOUS OF MALIGNANCY RECOMMENDATION: The 2 cm x 0.5 cm x 0.4 cm intraductal mass in the left breast central to the nipple in the retroareolar region resembles a papillary lesionand is at a low suspicion for malignancy. An ultrasound guided biopsy and a surgical consult are recommended. The 2.5 cm x 0.5 cm x 0.4 cm intraductal mass in the left breast at 1 o'clock middle depth resembles a papillary lesion and is suspicious of malignancy. An ultrasound guided biopsy is recommended. SUMMARY: These findings were discussed with the patient at the time of examination. The staff from the [facility] with [facility] will contact the referring physician for orders and then contact the patient to schedule the biopsy. A separate report will be issued following the biopsy. Professional services are provided by the [facility]. Charly Slater M.D. rsl/:12/23/2018 16:28:17 Package Clerk(s): Maureen De Los Santos, [facility] letter sent: BI-RADS 4/5 Ultrasound BI-RADS: 4a Suspicious abnormality - low suspicion for malignancy 12/23/2018 [facility] Breast Mammo Diag KALEB w delgado incl CAD MA BILATERAL DIGITAL DIAGNOSTIC MAMMOGRAM 3D/2D WITH CAD: 12/23/2018 CLINICAL: /N64.52 Nipple Discharge. Current study was evaluated with a Computer Aided Detection (CAD) system. COMPARISON:Comparison is made to exams dated: 04/19/2017 mammogram and 04/19/2017 ultrasound - [facility]. TECHNIQUE: Digital Breast Tomosynthesis was performed and utilized for Interpretation. Current study was also evaluated with a Computer Aided Detection (CAD) system. FINDINGS: There are scattered fibroglandular densities in both breasts. Again noted is left retroareolar ductal ectasia. The patient reports a persistent history of left spontaneous clear nipple discharge, which has not changed. Ultrasound on 04/19/17 revealed an intraductal mass, for which biopsy was recommended, but not performed. There are benign appearing calcifications in both breasts. No significant masses, calcifications, or other findings are seen in either breast. IMPRESSION: INCOMPLETE: NEEDS ADDITIONAL IMAGING EVALUATION RECOMMENDATION:Again noted is left retroareolar ductal ectasia. The patient reports a persistent history of left spontaneous clear nipple discharge, which has not changed. Ultrasound on 04/19/17 revealed an intraductal mass, for which biopsy was recommended, but not performed. Clinical follow-up and an ultrasound recommended for further evaluation. Professional services are provided by the [facility]. Charly arvizu/yordy:12/23/2018 14:16:40 Package Clerk(s): Nereida Cruz, [facility] Mammogram BI-RADS: 0 Indeterminate 12/23/2018 [facility] Retroperitoneal Complete US Cl inical Indication: - N18.9 Chronic kidney disease, unspecified; Comparison: None TECHNIQUE: Multiple longitudinal and transverse real time sonographic images of the kidneys and urinary bladder are obtained. FINDINGS: KIDNEY: The right kidney measures 11.6 x 3.5 x 4.2 cm. Right renal cortex measures 1.0 cm in thickness. The left kidney measures 12.0 x 4.4 x 3.8 cm. Left renal cortex measures 1.4 cm in thickness. The kidneys are normal in size, shape, contour, and position. The cortices are normal in thickness and the corticomedullary differentiation is maintained. A 0.5 x 0.7 x 0.6 cm well-defined, echogenic structure with mild posterior acoustic shadowing is noted in a right renal upper pole cortex, suggestive of a small angiomyolipoma. There is no hydronephrosis, nephrolithiasis, or abnormal perinephric collections. BLADDER: Scanning through the pelvis reveals the bladder to be partially distended with anechoic urine. Bilateral ureteral jets were identified on the study. ASCITES: No ascites noted. AORTA AND IVC: Visualized portions of the aorta, proximal bilateral common iliac arteries and IVC are unremarkable. IMPRESSION: 1. Unremarkable renal U/S for acute path ology. 2. 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 Further evaluation with CT abdomen/pelvis with IV contrast can be considered. Alternatively, short-term follow-up ultrasound in 3-6 months can also be undertaken for documentation of stability of this finding. SL: [id number] 10/23/2018 [facility] Chest 1view DX XR CHEST 1 VIEW HISTORY: - Presents for uncontrolled hypertension. COMPARISON: None. FINDINGS: The heart is enlarged. Vasculature is normal. Lungs are clear. No pleural abnormality. The bones are intact. IMPRESSION: Cardiomegaly without evidence of acute congestive heart failure. SL: ROBINSON 03/06/2018 [facility] Breast Complete Uni US - BREAS T COMPLETE UNI US/L ULTRASOUND OF LEFT BREAST AND LEFT AXILLA- CLARICE BASIN: 04/19/2017 Comparison is made to exam dated: 04/19/2017 mammogram - [facility]. Color flow, real-time and Doppler ultrasound of the left breast and axilla were performed. Gary scale images of the real-time examination were reviewed. There is a 2.8 cm x 0.5 cm x 0.5 cm intraductal mass in the left breast central to the nipple in the retroareolar region 1 cm from the nipple. This correlates with the nipple discharge. Color flow imaging demonstrates that there is vascularity present. There is an obstructed side duct at 11:00 retroareaola which also has color flow. MRI may be needed to evaluate extent of disease prior to surgery. This was discussed with the patient. No abnormalities were seen sonographically in the left axilla. Technique: Real- time sonographic imaging of the left breast (including all four quadrants and retroareolar region) was performed to include the axillary, infraclavicular and internal mammary clarice basins. Images were obtained in multiple scanning planes. There are no suspicious axillary, infraclavicular, or internal mammary lymph nodes. IMPRESSION: SUSPICIOUS OF MALIGNANCY - FOLLOW-UP RECOMMENDED There are no suspicious axillary, infraclavicular, or internal mammary lymph nodes. The 2.8 cm x 0.5 cm x 0.5 cm intraductal mass in the left breast most likely is a papillary lesion and is suspicious of malignancy. An ultrasound guided biopsy or a surgical consult are recommended. This is oriented in the 12:00 retroareolar region. There is an obstructed side duct at 11:00 retroareaola which also has color flow. MRI may be needed to evaluate extent of disease prior to surgery. This was discussed with the patient. SUMMARY: These findings were discussed with the patient at the time of examination. The patient scheduled her biopsy prior to leaving the [facility]. The staff of [facility] with [facility] will contact the referring physician for orders and then contact the patient to schedule the biopsy. A supplemental report will be issued following interpretation of the biopsy. Professional services are provided by the [facility]. Elva maldonado/yordy:04/19/2017 13:52:34 Package Clerk: Ning Cruz, [facility] This exam was dictated and interpreted by [id number] at [facility]. letter sent: Biopsy Ultrasound BI-RADS: 4 Suspicious abnormality 04/19/2017 [facility] Breast Mammo Diag KALEB incl CAD MA - BREAST MAMMO DIAG KALEB INCL CAD MA BILATERAL DIGITAL DIAGNOSTIC MAMMOGRAM WITH CAD: 04/19/2017 CLINICAL: N64.52/N64.52. Current study was evaluated with a Computer Aided Detection (CAD) system. No prior exams were available for comparison. The tissue of both breasts is almost entirely fat. There are bilateral skin calcifications. No significant masses, calcifications, or other findings are seen in either breast. IMPRESSION: BENIGN There is no mammographic abnormality seen in the left breast to correspond with the non-bloody discharge from the nipple, however further workup with ultrasound is recommended. There is no mammographic evidence of malignancy. SUMMARY: Left breast ultrasound has been requested and will be performed at this time. Professional services are provided by the [facility]. Elva maldonado/yordy:04/19/2017 13:05:47 Package Clerk: Kitty Robbins, [facility] This exam was dictated and interpreted by [id number] at [facility] [place]. Mammogram BI-RADS: 2 Benign 04/19/2017 [facility] Consultation Notes No Data Provided for This Section Discharge Summaries No Data Provided for This Section History and Physicals No Data Provided for This Section Vital Signs Vital Sign Value Date Comments Source Height 165.1 cm 07/07/2019 [facility] Systolic (mm Hg) 102 07/07/2019 [facility] Diastolic (mm Hg) 74 07/07/2019 [facility] Heart Rate 97 07/07/2019 [facility] Temperature Oral (F) 98.7 F 07/07/2019 [facility] Weight 111.477 07/07/2019 [facility] BMI Calculated 40.9 07/07/2019 [facility] Systolic (mm Hg) 148 12/23/2018 [facility] Diastolic (mm Hg) 101 12/23/2018 [facility] BMI Calculated 40.75 12/23/2018 [facility] Height 165.1 cm 12/23/2018 [facility] Weight 111.08 12/23/2018 [facility] Systolic (mm Hg) 169 12/23/2018 [facility] Diastolic (mm Hg) 124 12/23/2018 [facility] Heart Rate 88 12/23/2018 [facility] Temperature Oral (F) 97.9 F 12/23/2018 [facility] BMI Calculated 40.69 11/21/2018 [facility] Weight 110.909 11/21/2018 [facility] Systolic (mm Hg) 147 11/21/2018 [facility] Diastolic (mm Hg) 101 11/21/2018 [facility] Temperature Oral (F) 98.2 F 11/21/2018 [facility] Heart Rate 87 11/21/2018 [facility] Height 165.1 cm 11/21/2018 [facility] Systolic (mm Hg) 163 10/09/2018 [facility] Diastolic (mm Hg) 113 10/09/2018 [facility] Temperature Oral (F) 98.5 F 10/09/2018 [facility] Systolic (mm Hg) 162 10/09/2018 [facility] Diastolic (mm Hg) 122 10/09/2018 [facility] Heart Rate 92 10/09/2018 [facility] Height 165.1 cm 10/09/2018 [facility] BMI Calculated 40.77 10/09/2018 [facility] Weight 111.136 10/09/2018 [facility] Systolic (mm Hg) 167 03/07/2018 [facility] Diastolic (mm Hg) 118 03/07/2018 [facility] Respitory Rate 16 03/07/2018 [facility] Heart Rate 86 03/07/2018 [facility] Temperature Oral (F) 98.7 F 03/07/2018 [facility] Respitory Rate 16 03/06/2018 [facility] Heart Rate 99 03/06/2018 [facility] Systolic (mm Hg) 202 03/06/2018 [facility] Diastolic (mm Hg) 128 03/06/2018 [facility] Temperature Oral (F) 98.5 F 03/06/2018 [facility] BMI Calculated 39.85 03/06/2018 [facility] Weight 108.636 03/06/2018 [facility] Height 165.1 cm 03/06/2018 [facility] Heart Rate 95 03/06/2018 [facility] Systolic (mm Hg) 193 03/06/2018 [facility] Diastolic (mm Hg) 146 03/06/2018 [facility] Respitory Rate 18 03/06/2018 [facility] Temperature Oral (F) 98.7 F 03/06/2018 [facility] Temperature Oral (F) 98.9 F 03/06/2018 [facility] Heart Rate 98 03/06/2018 [facility] Systolic (mm Hg) 199 03/06/2018 [facility] Diastolic (mm Hg) 149 03/06/2018 [facility] BMI Calculated 41.52 03/06/2018 [facility] Weight 113.182 03/06/2018 [facility] Height 165.1 cm 03/06/2018 [facility] Temperature Oral (F) 98.7 F 03/27/[address] [facility] Systolic (mm Hg) 163 03/27/[address] [facility] Diastolic (mm Hg) 89 03/27/[address] [facility] Respitory Rate 18 03/27/[address] [facility] Heart Rate 91 03/27/[address] [facility] Heart Rate 88 03/27/[address] [facility] Respitory Rate 18 03/27/[address] [facility] Systolic (mm Hg) 160 03/27/[address] [facility] Diastolic (mm Hg) 96 03/27/[address] [facility] Temperature Oral (F) 98.8 F 03/27/[address] [facility] Respitory Rate 17 03/27/[address] [facility] Systolic (mm Hg) 212 03/27/[address] [facility] Diastolic (mm Hg) 138 03/27/[address] [facility] Heart Rate 92 03/27/[address] [facility] Weight 102.075 03/27/[address] [facility] BMI Calculated 37.75 09/07/[address] [facility] Weight 102.9 09/07/[address] [facility] Temperature Oral (F) 98.8 F 09/07/[address] [facility] Heart Rate 107 09/07/[address] [facility] Respitory Rate 20 09/07/[address] [facility] Systolic (mm Hg) 188 09/07/[address] [facility] Diastolic (mm Hg) 114 09/07/[address] [facility] Height 165.1 cm 09/07/[address] [facility] Systolic (mm Hg) 144 08/22/[address] [facility] Diastolic (mm Hg) 105 08/22/[address] [facility] Respitory Rate 18 08/22/[address] [facility] Heart Rate 84 08/22/[address] [facility] Height 165.1 cm 08/22/[address] [facility] BMI Calculated 37.52 08/22/[address] [facility] Weight 102.273 08/22/[address] [facility] Systolic (mm Hg) 167 08/22/[address] [facility] Diastolic (mm Hg) 122 08/22/[address] [facility] Heart Rate 90 08/22/[address] [facility] Respitory Rate 18 08/22/[address] [facility] Temperature Oral (F) 98.9 F 08/22/[address] [facility] Encounters Location Location Details Encounter Type Encounter Number Reason For Visit Attending Provider ADM Date DC Date Status Source Outpatient [id number] KENZIE SIMMONS 04/29/2015 Active [facility] Outpatient [id number] KENZIE IRIS 11/12/2015 Active [facility] Outpatient [id number] KENZIE IRIS 02/10/2016 [facility] Emergency [id number] Nadim Religious 08/22/2016 08/22/[address] [facility] Emergency [id number] Nadim Religious 09/07/2016 09/07/2016 [facility] [place] [facility]patient [id number] KENZIE IRIS 11/10/2016 Active [facility] Emergency [id number] Sammy Benavidez 03/27/2017 03/27/2017 [facility] [place] Outpatient [id number] KENZIE IRIS 04/05/2017 Active [facility] Outpatient Imaging [facility] Outpatient [id number] Kenzie [place] 04/19/2017 04/20/2017 [facility] Outpatient Imaging [facility] Outpatient [id number] Kenzie Iris 04/19/2017 04/20/2017 [facility] Outpatient [id number] KENZIE IRIS 05/09/2017 Active [facility] Outpatient [id number] KENZIE IRIS 05/21/2017 [facility] Phone Message [id number] 11/29/2017 12/01/2017 [facility] Outpatient [id number] KENZIE IRIS 03/06/2018 [facility] Outpatient [id number] Kenzie [place] 03/06/2018 03/07/[address] [facility] Emergency [id number] Gurvinder Hammond 03/06/2018 03/07/2018 [facility] Outpatient [id number] KENZIE IRIS 10/09/2018 [facility] Outpatient [id number] Kenzie Iris 10/09/2018 10/10/2018 [facility] Outpatient Imaging [facility] Outpt Diag Services [id number] Kenzie [place] 10/23/2018 10/24/2018 [facility] Outpatient [id number] KENZIE IRIS 11/21/2018 [facility] Outpatient [id number] Kenzie [place] 11/21/2018 11/22/2018 [facility] Primary Care [facility] Between Visit [id number] 12/03/2018 12/04/2018 [facility] Primary Care [facility] Between Visit [id number] 12/03/2018 12/04/2018 [facility] Outpatient [id number] Kenzie Iris 12/23/2018 Active [facility] Primary Care [facility] Outpatient [id number] Kenzie Iris 12/23/2018 12/24/2018 [facility] Outpatient [facility] Outpatient [id number] [place] 12/23/2018 12/24/2018 [facility] Primary Care [facility] Between Visit [id number] 12/27/2018 12/28/2018 [facility] Primary Care [facility] Phone Message [id number] 03/14/2019 03/16/2019 [facility] Outpatient [id number] [place]zie [place] 03/28/2019 [facility] Ambulatory Pre-Reg [id number] Kenzie [place] 03/28/2019 03/28/2019 [facility] Outpatient [id number] Kenzie Iris 06/13/2019 Active [facility] Steven MG Primary Care [facility] Ambulatory Pre-Reg [id number] Kenzie Iris 06/13/2019 06/13/2019 [facility] Outpatient [id number] Kenzie Iris 07/07/2019 Active [facility] Primary Care [facility] Outpatient [id number] Kenzie Iris 07/07/2019 07/08/2019 [facility] Primary Care [facility] Between Visit [id number] 08/12/2019 08/13/2019 [facility] Primary Care [facility] Between Visit [id number] 08/12/2019 08/13/2019 [facility] Primary Care [facility] Between Visit [id number] 08/13/2019 08/14/2019 [facility] Primary Care [facility] Between Visit [id number] 08/13/2019 08/14/2019 [facility] Outpatient [id number] Kenzie [place] 10/10/2019 [facility] Ambulatory Pre-Reg [id number] Kenzie [place] 10/10/2019 10/10/2019 [facility] Primary Care [facility] Phone Message [id number] 11/20/2019 11/22/2019 [facility] Primary Care [facility] Phone Message [id number] 12/11/2019 12/13/2019 [facility] Primary Care [facility] Phone Message [id number] 12/11/2019 12/13/2019 [facility] Primary Care [facility] Phone Message [id number] 12/11/2019 12/13/2019 [facility] Outpatient Imaging [facility] Outpatient [id number] Kenzie Iris 12/12/2019 12/13/2019 [facility] Primary Care [facility] Between Visit [id number] 12/17/2019 12/18/2019 [facility] Outpatient [id number] Kenzie [place] 12/25/2019 Active [facility] Primary Care [facility] Outpatient [id number] Kenzie Iris 12/25/2019 12/26/2019 [facility] Phone Message [id number] 01/19/2020 01/21/2020 [facility] Procedures No Data Provided for This Section Assessment and Plan No Data Provided for This Section Plan of Care No Data Provided for This Section Social History Social History Date Source Social History TypeResponse Alcohol Current, Type Wine, Liquor. Frequency: 1-2 times per month. Employment/School Status: Employed. Exercise Exercise duration: 60. Exercise frequency: 1-2 times/week. Exercise type: Walking.1 Smoking Status Current some day smoker; Type: Cigars; Exposure to Tobacco Smoke None; Exposure to Tobacco Smoke self; Cigarette Smoking Last 365 Days Yes; Reg Smoking Cessation Counseling Yes2 entered on: 07/07/19 1crunches/push qfi0Wwdhmzi states that s he smokes cigars sometimes, a few times a month. 07/07/2019 [facility] Social History TypeResponse Alcohol Current, Type Wine, Liquor. Frequency: 1-2 times per month. Employment/School Status: Employed. Exercise Exercise duration: 60. Exercise frequency: 1-2 times/week. Exercise type: Walking.1 Smoking Status Current some day smoker; Type: Cigars; Exposure to Tobacco Smoke None; Exposure to Tobacco Smoke self; Cigarette Smoking Last 365 Days Yes; Reg Smoking Cessation Counseling Yes2 entered on: 07/07/19 1crunches/push rkw4Tdxkwsh states that s he smokes cigars sometimes, a few times a month. 07/07/2019 [facility] Social History TypeResponse Exercise Exercise duration: 60. Exercise frequency: 1-2 times/week. Exercise type: Walking.1 Employment/School Status: Employed. Alcohol Current, Type Wine, Liquor. Frequency: 1-2 times per month. Smoking Status Current some day smoker; Type: Cigars; Exposure to Tobacco Smoke None; Exposure to Tobacco Smoke self; Cigarette Smoking Last 365 Days Yes; Reg Smoking Cessation Counseling Yes2 entered on: 03/06/18 1crunches/push hys6Tsxlkvi states that s he smokes cigars sometimes, a few times a month. 03/06/2018 [facility] Social [facility] TypeResponse Exercise Exercise duration: 60. Exercise frequency: 1-2 times/week. Exercise type: Walking.1 Employment/School Status: Employed. Alcohol Current, Type Wine, Liquor. Frequency: 1-2 times per month. Smoking Status Never smoker; Exposure to Tobacco Smoke None; Cigarette Smoking Last 365 Days No; Reg Smoking Cessation Counseling No 1crunches/push ups 11/10/[address] [facility] Family History No Data Provided for This Section Advance Directives No Data Provided for This Section Functional Status No Data Provided for This Section
--- OUTSIDE RECORDS SUMMARY | 2020-01-29 23:57 | XMS REPORT | Summary of Care ---
Author Author [facility] Primary Care [facility] Primary Care [facility] Address Unknown Phone Unavailable Encounter HQ Anair_charley(FIN) [id number] Date(s): 03/28/19 - 03/28/19 [facility] Primary Care [facility] [address] [facility] [address] [place], [place] [address]- [phone] Attending Physician: Kenzie Simmons MD Vital Signs No data available for this section Problem List Condition Effective Dates Status Health Status Informan t Abnormal cytology 12/05/10 Active findings1 Abnormal vaginal 11/28/12 Active bleeding2 Acute upper Resolved respiratory infection3 Alopecia4 11/04/13 Active Ankle pain5, 6 01/27/15 Active Bacterial vaginosis7 09/28/11 Resolved Benign Active hypertension(Confirm ed)8 Chest pain9 07/30/13 Active Jkhtsujqao38 04/07/14 Active Gfucxz50 12/27/12 Active Electrocardiogram 12/27/12 Active fuphvpru23 Zbwmjjcz57 07/30/14 Active Mtuokganmbetib47 02/04/14 Active Impaired glucose 07/30/14 Active vnkhegdjf81 Joint pain16, 17 01/27/15 Active Microscopic 11/13/14 Active qzibddodv82, 19 Xgmakbm02 12/05/10 Active Otitis zuzjxkq57 03/18/12 Resolved Patient 05/31/12 Active noncompliance - waunqet64 Bggjgarjckn03 03/18/12 Resolved Physical examination 10/30/14 Active ruyodfmpp71, 25 Polycystic przsuux82 12/27/12 Active Vitamin D 07/30/13 Active ymgilktgnj22 1Data migrated from [employer] on 02/23/15. [...] month. Smoking Status Current some day smoker; Ty pe: Cigars; Exposure to Tobacco Smoke None; Exposure to Tobacco Smoke self; Cigaret te Smoking Last 365 Days Yes; Reg Smoking Cessation Counseling Yes2 entered on: 12/23/18 1crunches/push ups 2Patinet states that she smokes cigars sometimes, a few times a month. Assessment and Plan No data available for this section
--- OUTSIDE RECORDS SUMMARY | 2020-01-29 23:57 | XMS REPORT | Summary of Care ---
Author Author [facility] Outpatient Imaging [facility] Organization [facility] Outpatient Imaging [facility] Address Unknown Phone Unavailable Encounter HQ Christine_charley(FIN) [id number] Date(s): 04/19/17 - 04/19/17 [facility] Outpatient Imaging [facility] [address] [place], [place] [address] [phone] Discharge Disposition: Home or Self Care Attending Physician: Kenzie Simmons MD Vital Signs No data available for this section Problem List Condition Effective Dates Status Health Status Informan t Abnormal cytology 12/05/10 Active findings1 Abnormal vaginal 11/28/12 Active bleeding2 Acute upper Resolved respiratory infection3 Alopecia4 11/04/13 Active Ankle pain5, 6 01/27/15 Active Bacterial vaginosis7 09/28/11 Resolved Benign hypertension8 Active Chest pain9 07/30/13 Active Lwrynkwrxo14 04/07/14 Active Qyfcat95 12/27/12 Active Electrocardiogram 12/27/12 Active Grnadazf46 07/30/14 Active Jcjqnurlgrzehh93 02/04/14 Active Impaired glucose 07/30/14 Active pwvtzlpno65 Joint pain16, 17 01/27/15 Active Microscopic 11/13/14 Active utmeezphx34, 19 Wboxvjt74 12/05/10 Active Otitis gntnbmy79 03/18/12 Resolved Patient 05/31/12 Active noncompliance - zauwdsw43 Igaboxvhskk30 03/18/12 Resolved Physical examination 10/30/14 Active cohsdixao09, 25 Polycystic anfznek70 12/27/12 Active Vitamin D 07/30/13 Active esmmvxkdhl64 1Data migrated from [employer] on 02/23/15. [...]
--- OUTSIDE RECORDS SUMMARY | 2020-01-29 23:57 | XMS REPORT | Summary of Care ---
Author Author [facility] Outpatient Imaging [facility] Organization [facility] Outpatient Imaging [facility] Address Unknown Phone Unavailable Encounter IRMA Briones(MARVIN) [id number] Date(s): 12/23/18 - 12/23/18 [facility] Outpatient Imaging [facility] [address] [place], [place] [address]- [phone] Discharge Disposition: Home or Self Care Attending Physician: Kenzie Simmons MD Referring Physician: Kenzie Simmons MD Vital Signs No data available for this section Problem List Condition Effective Dates Status Health Status Informan t Abnormal cytology 12/05/10 Active findings1 Abnormal vaginal 11/28/12 Active bleeding2 Acute upper Resolved respiratory infection3 Alopecia4 11/04/13 Active Ankle pain5, 6 01/27/15 Active Bacterial vaginosis7 09/28/11 Resolved Benign Active hypertension(Confirm ed)8 Chest pain9 07/30/13 Active Enzhucfayg37 04/07/14 Active Elvysq28 12/27/12 Active Electrocardiogram 12/27/12 Active kfhwfedd48 Cuthedxh30 07/30/14 Active Jslqqosijldjtj34 02/04/14 Active Impaired glucose 07/30/14 Active jirwsqzvo89 Joint pain16, 17 01/27/15 Active Microscopic 11/13/14 Active zzwyvjtwn26, 19 Qgveosr10 12/05/10 Active Otitis ftmproh99 03/18/12 Resolved Patient 05/31/12 Active noncompliance - Zypnkkhbphm47 03/18/12 Resolved Physical examination 10/30/14 Active kworefbji87, 25 Polycystic uxonavp70 12/27/12 Active Vitamin D 07/30/13 Active hqblnuazoi54 1Data migrated from [employer] on 02/23/15. [...]
--- OUTSIDE RECORDS SUMMARY | 2020-01-29 23:57 | XMS REPORT | Summary of Care ---
Author Author [facility] Primary Care [facility] Primary Care [facility] Address Unknown Phone Unavailable Encounter HQ Anair_charley(FIN) [id number] Date(s): 12/25/19 - 12/25/19 [facility] Primary Care [facility] [address] [facility] [address] [place] [address]- [phone] Discharge Disposition: Home or Self Care Attending [...] Active hypertension(Confirm ed)8 Chest pain9 07/30/13 Active Urmpstycdo18 04/07/14 Active Spnyoa12 12/27/12 Active Electrocardiogram 12/27/12 Active jxhvvzya02 Iptuglhz21 07/30/14 Active Nhmbkwccuhzlpt22 02/04/14 Active Hyperlipidemia(Confi Active rmed) Impaired glucose 07/30/14 Active vlyevnzho77 Joint pain16, 17 01/27/15 Active Microalbuminuria(Con Active firmed) Microscopic 11/13/14 Active hbqqowwra30, 19 Fnrfqhc21 12/05/10 Active Otitis 03/18/12 Resolved Patient 05/31/12 Active noncompliance - ulpmokp92 Wsxozyeutvg75 03/18/12 Resolved Physical examination 10/30/14 Active drwjynqsx38, 25 Polycystic 12/27/12 Active Vitamin D 07/30/13 Active ridbgmubhu33 1Data migrated from [employer] on 02/23/15. [...] Reactions, Alerts No Known Medication Allergies Medications amLODIPine 10 mg oral tablet 10 mg = 1 tab, PO, Daily, # 90 tab, 1 Refill(s), Pharmacy: [facility] Start Date: 12/25/19 Status: Ordered Fish Oil 1000 mg oral capsule 1,000 mg = 1 cap, PO, BID, 0 Refill(s) Start Date: 12/25/19 Status: Ordered hydrochlorothiazide 25 mg oral tablet = 1 tab, PO, Daily, # 90 tab, 1 Refill(s), Pharmacy: [facility] Start Date: 12/25/19 Status: Ordered lisinopril 40 mg oral tablet = 1 tab, PO, Daily, # 90 tab, 1 Refill(s), Pharmacy: [id number] Start Date: 12/25/19 Stop Date: 06/22/20 Status: Ordered Results No data available for this section Immunizations Given and Recorded Vaccine Date Status Refusal Reason tetanus-diphtheria toxoids1 09/26/10 Given diphtheria/pertussis, acel/tetanus adult2 09/26/10 Given 1Result Comment: adacel. Migrated from OBS VIS: 08-11-08 given September 26, 2010. ; Data migrated from [employer] on 10/25/2015. 2Result Comment: adacel. Migrated from OBS ; Data migrated from [employer] on 10/25/2015. Procedures No data available for [...]
--- OUTSIDE RECORDS SUMMARY | 2020-01-29 23:57 | XMS REPORT | Summary of Care ---
Author Author [facility] Primary Care [facility] Organization [facility] Primary Care [facility] Address Unknown Phone Unavailable Care Team Providers Care Supervising Deputy Name Role Phone Kenzie Simmons PCP Encounter HQ Amberntr_charley(FIN) [id number] Date(s): 12/17/19 - 12/18/[address] [place], [place] [address]- [phone] Vital Signs No data available for this section Problem List Condition Effective Dates Status Health Status Informan t Abnormal cytology 12/05/10 Active findings1 Abnormal vaginal 11/28/12 Active bleeding2 Acute upper Resolved respiratory infection3 Alopecia4 11/04/13 Active Ankle pain5, 6 01/27/15 Active Bacterial vaginosis7 09/28/11 Resolved Benign Active hypertension(Confirm ed)8 Chest pain9 07/30/13 Active Yqmuqebbmc97 04/07/14 Active Teodbl22 12/27/12 Active Electrocardiogram 12/27/12 Active ljinxatx05 Aszyoimj59 07/30/14 Active Ddqpmftogwqufd36 02/04/14 Active Hyperlipidemia(Confi Active rmed) Impaired glucose 07/30/14 Active ehrhkxhrn26 Joint pain16, 17 01/27/15 Active Microalbuminuria(Con Active firmed) Microscopic 11/13/14 Active gceoomlqc15, 19 Ottcqjz59 12/05/10 Active Otitis qkmirrn26 03/18/12 Resolved Patient 05/31/12 Active noncompliance - rhtfnyc95 Wetdtravfji66 03/18/12 Resolved Physical examination 10/30/14 Active jmnapjxae89, 25 Polycystic wgumsgg52 12/27/12 Active Vitamin D 07/30/13 Active pbekyrcwxd38 1Data migrated from [employer] on 02/23/15. [...]
--- OUTSIDE RECORDS SUMMARY | 2020-01-29 23:57 | XMS REPORT | Summary of Care ---
Author Author [facility] Primary Care [facility] Primary Care [facility] Address Unknown Phone Unavailable Encounter HQ Anali(FIN) [id number] Date(s): 10/09/18 - 10/09/18 [facility] Primary Care [facility] [address] [place], [place] [address]- [phone] Discharge Disposition: Home or Self Care Attending Physician: Kenzie Simmons MD Vital Signs Most recent to 1 2 oldest [Reference Range]: Height 165.1 cm (10/09/18 10:16 AM) Temperature Oral 98.5 DegF [96.4-99.1 DegF] (10/09/18 10:16 AM) Blood Pressure 163/113 mmHg 162/122 mmHg [90-140/60-90 mmHg] *HI* *HI* (10/09/18 11:05 AM) (10/09/18 10:16 AM) Peripheral Pulse 92 bpm Rate [60-100 bpm] (10/09/18 10:16 AM) Weight 111.136 kg (10/09/18 10:16 AM) Body Mass Index 40.77 m2 (10/09/18 10:16 AM) Problem List Condition Effective Dates Status Health Status Informan t Abnormal cytology 12/05/10 Active findings1 Abnormal vaginal 11/28/12 Active bleeding2 Acute upper Resolved respiratory infection3 Alopecia4 11/04/13 Active Ankle pain5, 6 01/27/15 Active Bacterial vaginosis7 09/28/11 Resolved Benign Active hypertension(Confirm ed)8 Chest pain9 07/30/13 Active Fuudfbvzzu93 04/07/14 Active Botytd45 12/27/12 Active Electrocardiogram 12/27/12 Active yvqxqlmj98 Cixdqloc49 07/30/14 Active Nkoiutzifydkpa11 02/04/14 Active Impaired glucose 07/30/14 Active owoqyrynd99 Joint pain16, 17 01/27/15 Active Microscopic 11/13/14 Active , 19 Ngudwim66 12/05/10 Active Otitis bacduvf36 03/18/12 Resolved Patient 05/31/12 Active noncompliance - ysfdfeb32 Jvjpehztdji96 03/18/12 Resolved Physical examination 10/30/14 Active qrpmitncy08, 25 Polycystic nrjgotr04 12/27/12 Active Vitamin D 07/30/13 Active judpnkptlm09 1Data migrated from [employer] on 02/23/15. [...] Reactions, Alerts No Known Medication Allergies Medications atorvastatin 20 mg oral tablet = 1 tab, PO, Bedtime, # 90 tab, Pharmacy: [id number] Start Date: 02/23/19 Status: Ordered atorvastatin 20 mg oral tablet 20 mg = 1 tab, PO, Bedtime, # 90 tab, 0 Refill(s), Pharmacy: [facility] 18 Start Date: 10/21/18 Stop Date: 02/23/19 Status: Completed hydrochlorothiazide 25 mg oral tablet 25 mg = 1 tab, PO, Daily, # 90 tab, 0 Refill(s), Pharmacy: [facility] , due for an appt. Start Date: 10/09/18 Stop Date: 12/23/18 Status: Discontinued lisinopril 30 mg oral tablet 30 mg = 1 tab, PO, Daily, # 90 tab, 0 Refill(s), Pharmacy: [facility] Start Date: 10/09/18 Stop Date: 11/21/18 Status: Discontinued Results No data available for this section Immunizations Given and Recorded Vaccine Date Status Refusal Reason tetanus-diphtheria toxoids1 09/26/10 Given diphtheria/pertussis, acel/tetanus adult2 09/26/10 Given 1Result Comment: adacel. Migrated from OBS VIS: 08-11-08 given September 26, 2010. ; Data migrated from [employer] on 10/25/2015. 2Result Comment: adacel. Migrated from OBS ; Data migrated from [employer] on 10/25/2015. Procedures No data available for [...]
--- OUTSIDE RECORDS SUMMARY | 2020-01-29 23:57 | XMS REPORT | Summary of Care ---
Author Author [facility] Primary Care [facility] Organization [facility] Address Unknown Phone Unavailable Encounter HQ Anali(FIN) [id number] Date(s): 12/23/18 - 12/23/18 [facility] Primary Care [facility] [address] [place], [place] [address]- [phone] Discharge Disposition: Home or Self Care Attending Physician: Kenzie Simmons MD Vital Signs Most recent to 1 2 oldest [Reference Range]: Height 165.1 cm (12/23/18 10:55 AM) Temperature Oral 97.9 DegF [96.4-99.1 DegF] (12/23/18 10:55 AM) Blood Pressure 148/101 mmHg 169/124 mmHg [90-140/60-90 mmHg] *HI* *HI* (12/23/18 11:23 AM) (12/23/18 10:55 AM) Peripheral Pulse 88 bpm Rate [60-100 bpm] (12/23/18 10:55 AM) Weight 111.08 kg (12/23/18 10:55 AM) Body Mass Index 40.75 m2 (12/23/18 10:55 AM) Problem List Condition Effective Dates Status Health Status Informan t Abnormal cytology 12/05/10 Active findings1 Abnormal vaginal 11/28/12 Active bleeding2 Acute upper Resolved respiratory infection3 Alopecia4 11/04/13 Active Ankle pain5, 6 01/27/15 Active Bacterial vaginosis7 09/28/11 Resolved Benign Active hypertension(Confirm ed)8 Chest pain9 07/30/13 Active Blfixuqjtd47 04/07/14 Active Slminh45 12/27/12 Active Electrocardiogram 12/27/12 Active upzfhsgs67 Ujtsrkpf35 07/30/14 Active Yyukhabmrnwukf37 02/04/14 Active Impaired glucose 07/30/14 Active lrhgdcgoz89 Joint pain16, 17 01/27/15 Active Microscopic 11/13/14 Active wjsiibkqv57, 19 Dhsyabi31 12/05/10 Active Otitis grbdksy03 03/18/12 Resolved Patient 05/31/12 Active noncompliance - ekbacmu53 Awegnopuuqh09 03/18/12 Resolved Physical examination 10/30/14 Active klbtesnfp38, 25 Polycystic zmumavo03 12/27/12 Active Vitamin D 07/30/13 Active ynzmrarywv92 1Data migrated from [employer] on 02/23/15. [...] Substance Reaction Severity Status NKDA Active Medications amLODIPine 10 mg oral tablet 10 mg = 1 tab, PO, Daily, # 90 tab, 0 Refill(s), Pharmacy: [facility] Start Date: 12/23/18 Status: Ordered amLODIPine 5 mg oral tablet 5 mg = 1 tab, PO, Daily, # 90 tab, 0 Refill(s) Start Date: 12/23/18 Stop Date: 12/23/18 Status: Discontinued hydrochlorothiazide 25 mg oral tablet 25 mg = 1 tab, PO, Daily, # 90 tab, 0 Refill(s), Pharmacy: [facility] , due for an appt. Start Date: 12/23/18 Status: Ordered Results No data available for this section Immunizations Given and Recorded Vaccine Date Status Refusal Reason tetanus-diphtheria toxoids1 09/26/10 Given diphtheria/pertussis, acel/tetanus adult2 09/26/10 Given 1Result Comment: adacel. Migrated from [employer] VIS: 08-11-08 given September 26, 2010. ; Data migrated from [employer] on 10/25/2015. 2Result Comment: adacel. Migrated from OBS ; Data migrated from [employer] on 10/25/2015. Procedures No data available for [...]
--- OUTSIDE RECORDS SUMMARY | 2020-01-29 23:57 | XMS REPORT | Summary of Care ---
Author Author [facility] Outpatient Imaging [facility] Organization [facility] Outpatient Imaging [facility] Address Unknown Phone Unavailable Care Team Providers Care Kiss Setter Hand Name Role Phone Kenzie Simmons PCP Encounter HQ Christine_charley(FIN) [id number] Date(s): 12/12/19 - 12/12/19 [facility] Outpatient Imaging [facility] [address] [place] [address] [address] [place], [place] [address] [phone] Discharge Disposition: Home or Self Care Attending [...] Active hypertension(Confirm ed)8 Chest pain9 07/30/13 Active Zpixcaputi39 04/07/14 Active Soejzn72 12/27/12 Active Electrocardiogram 12/27/12 Active ddymdtgt55 Wetuuccw80 07/30/14 Active Vyrlhgirovjciz51 02/04/14 Active Hyperlipidemia(Confi Active rmed) Impaired glucose 07/30/14 Active Joint pain16, 17 01/27/15 Active Microalbuminuria(Con Active firmed) Microscopic 11/13/14 Active jhzfftopf91, 19 Cpmnhyn08 12/05/10 Active Otitis addwntd90 03/18/12 Resolved Patient 05/31/12 Active noncompliance - Ngqpsxrpgkg38 03/18/12 Resolved Physical examination 10/30/14 Active bjgyqjsrg88, 25 Polycystic gxuydhq47 12/27/12 Active Vitamin D 07/30/13 Active mormxrdypl29 1Data migrated from [employer] on 02/23/15. [...] September 26, 2010. ; Data migrated from [employer] on 10/25/2015. 2Result Comment: adacel. Migrated from OBS ; Data migrated from [employer] on 10/25/2015. Procedures No data available for [...]
--- OUTSIDE RECORDS SUMMARY | 2020-01-29 23:57 | XMS REPORT | Summary of Care ---
Author Author [facility] Primary Care [facility] Primary Care [facility] Address Unknown Phone Unavailable Encounter HQ Anair_charley(FIN) [id number] Date(s): 06/13/19 - 06/13/19 [facility] Primary Care [facility] [address] [place] [address]- [phone] Attending Physician: Kenzie Simmons MD Vital Signs No data available for this section Problem List Condition Effective Dates Status Health Status Informan t Abnormal cytology 12/05/10 Active findings1 Abnormal vaginal 11/28/12 Active bleeding2 Acute upper Resolved respiratory infection3 Alopecia4 11/04/13 Active Ankle pain5, 6 01/27/15 Active Bacterial vaginosis7 09/28/11 Resolved Benign Active hypertension(Confirm ed)8 Chest pain9 07/30/13 Active Zeqafxivvg97 04/07/14 Active Hqsrbd85 12/27/12 Active Electrocardiogram 12/27/12 Active ctxtohaa79 Ahtruxhk27 07/30/14 Active Cvtsiedsvglvja91 02/04/14 Active Impaired glucose 07/30/14 Active gwxwpbhxe81 Joint pain16, 17 01/27/15 Active Microscopic 11/13/14 Active kicatrxpz32, 19 Mrhxmsi79 12/05/10 Active Otitis 03/18/12 Resolved Patient 05/31/12 Active noncompliance - gjguxvf30 Omfvxbiives56 03/18/12 Resolved Physical examination 10/30/14 Active esioacced23, 25 Polycystic mtczeee76 12/27/12 Active Vitamin D 07/30/13 Active acdzvmlane62 1Data migrated from [employer] on 02/23/15. [...]
--- OUTSIDE RECORDS SUMMARY | 2020-01-29 23:57 | XMS REPORT | Summary of Care ---
Author Author [facility] Outpatient [facility] Organization [facility] Address Unknown Phone Unavailable Encounter HQ Amberntr_charley(FIN) [id number] Date(s): 10/23/18 - 10/23/18 [facility] Outpatient Imaging [facility] [address] [place] [address] [address] [place], [place] [address] [phone] Encounter Diagnosis Chronic kidney disease, unspecified (Final) - 10/26/18 Discharge Disposition: Home or Self Care Attending [...] Active hypertension(Confirm ed)8 Chest pain9 07/30/13 Active Gwhbxmcwct99 04/07/14 Active Frrkgb32 12/27/12 Active Electrocardiogram 12/27/12 Active zwxbiqlj59 Keksniju57 07/30/14 Active Skkmoyixbzonpa07 02/04/14 Active Impaired glucose 07/30/14 Active xacoupbof64 Joint pain16, 17 01/27/15 Active Microscopic 11/13/14 Active , 19 Ytpmcoq56 12/05/10 Active Otitis 03/18/12 Resolved Patient 05/31/12 Active noncompliance - czgcikp54 Nvynyeijrxu75 03/18/12 Resolved Physical examination 10/30/14 Active rfglrfvaj46, 25 Polycystic krnywze46 12/27/12 Active Vitamin D 07/30/13 Active xpkrqqitzu50 1Data migrated from [employer] on 02/23/15. [...] Migrated from OBS ; Data migrated from [employer] on 10/25/2015. Procedures No data available for [...]
--- OUTSIDE RECORDS SUMMARY | 2020-01-29 23:58 | XMS REPORT | Summary of Care ---
Author Author [facility] Organization [facility] Address Unknown Phone Unavailable Encounter HQ Amberntr_charley(FIN) [id number] Date(s): 09/07/16 - 09/07/16 [facility] [address] [place], [place] [address] [phone] Discharge Diagnosis: Paronychia of right index finger Discharge Disposition: Home or Self Care Attending Physician: Mikhail Rasmussen MD Vital Signs Most recent to 1 oldest [Reference Range]: Height 165.1 cm (09/07/16 4:17 AM) Temperature Oral 98.8 DegF [96.4-99.1 DegF] (09/07/16 4:17 AM) Blood Pressure 188/114 mmHg [90-140/60-90 mmHg] *HI* (09/07/16 4:17 AM) Respiratory Rate 20 BRMIN [14-20 BRMIN] (09/07/16 4:17 AM) Peripheral Pulse 107 bpm Rate [60-100 bpm] *HI* (09/07/16 4:17 AM) Weight 102.9 kg (09/07/16 4:17 AM) Body Mass Index 37.75 m2 (09/07/16 4:17 AM) Problem List Condition Effective Dates Status Health Status Informan t Abnormal cytology 12/05/10 Active findings1 Abnormal vaginal 11/28/12 Active bleeding2 Acute upper Resolved respiratory infection3 Alopecia4 11/04/13 Active Ankle pain5, 6 01/27/15 Active Bacterial vaginosis7 09/28/11 Resolved Benign hypertension8 Active Chest pain9 07/30/13 Active Idqmgpwamo70 04/07/14 Active Skcdzu62 12/27/12 Active Electrocardiogram 12/27/12 Active bpizsuqk15 Esuonkkn07 07/30/14 Active Udrofiidtrytqh85 02/04/14 Active Impaired glucose 07/30/14 Active rnkdrakut44 Joint pain16, 17 01/27/15 Active Microscopic 11/13/14 Active zkqlaqhvn63, 19 Jkepefg33 12/05/10 Active Otitis plqnfyu71 03/18/12 Resolved Patient 05/31/12 Active noncompliance - yxcjvnz84 Pbxmbjgetuo90 03/18/12 Resolved Physical examination 10/30/14 Active pnheueswu66, 25 Polycystic djwmzus06 12/27/12 Active Vitamin D 07/30/13 Active ylpnjtrkcj05 1Data migrated from [employer] on 02/23/15. [...] [employer] on 02/23/15. 27Data migrated from [employer] on 02/23/15. Allergies, Adverse Reactions, Alerts Substance Reaction Severity Status NKDA Active Medications clindamycin 300 mg, 2 cap, Route: PO, Drug form: CAP, ONCE, Dosing Weight 102.9, kg, Priorit y: STAT, Start date: 09/07/16 4:36:00 SPORTS PSYCHOLOGIST, Stop date: 09/07/16 4:36:00 SPORTS PSYCHOLOGIST Notes: (Same As: Cleocin) Start Date: 09/07/16 Stop Date: 09/07/16 Status: Completed clindamycin 300 mg oral capsule 300 mg = 1 cap, PO, Q6H, X 10 day, # 40 cap, 0 Refill(s) Start Date: 09/07/16 Stop Date: 09/17/16 Status: Ordered tramadol 50 mg oral tablet 50 mg = 1 tab, PO, BID, X 15 day, # 30 tab, 0 Refill(s) Start Date: 09/07/16 Stop Date: 09/22/16 Status: Ordered Results No data available for this section Immunizations Given and Recorded Vaccine Date Status Refusal Reason diphtheria/pertussis, acel/tetanus adult1 09/26/10 Given tetanus-diphtheria toxoids2 09/26/10 Given 1Result Comment: adacel. Migrated from OBS ; Data migrated from [employer] on 10/25/2015. 2Result Comment: adacel. Migrated from [employer] VIS: 08-11-08 given September 26, 2010. ; Data migrated from [employer] on 10/25/2015. Procedures No data available for [...]
--- OUTSIDE RECORDS SUMMARY | 2020-01-29 23:58 | XMS REPORT | Summary of Care ---
Author Author [facility] Primary Care [facility] Primary Care [facility] Address Unknown Phone Unavailable Encounter HQ Anair_charley(FIN) [id number] Date(s): 03/14/19 - 03/15/19 [facility] Primary Care [facility] [address] [place], [place] [address]- [phone] Vital Signs No data available for this section Problem List Condition Effective Dates Status Health Status Informan t Abnormal cytology 12/05/10 Active findings1 Abnormal vaginal 11/28/12 Active bleeding2 Acute upper Resolved respiratory infection3 Alopecia4 11/04/13 Active Ankle pain5, 6 01/27/15 Active Bacterial vaginosis7 09/28/11 Resolved Benign Active hypertension(Confirm ed)8 Chest pain9 07/30/13 Active Qnwjdfyade29 04/07/14 Active Wpxrjz68 12/27/12 Active Electrocardiogram 12/27/12 Active abhzxhzs82 Yiukozrb57 07/30/14 Active Oiwjgnwmgekxlz84 02/04/14 Active Impaired glucose 07/30/14 Active nlxenthed21 Joint pain16, 17 01/27/15 Active Microscopic 11/13/14 Active xahmwlewr27, 19 Vgpsdbf89 12/05/10 Active Otitis zxuyoxv24 03/18/12 Resolved Patient 05/31/12 Active noncompliance - qlvfpor13 Rryyonwzgeg78 03/18/12 Resolved Physical examination 10/30/14 Active qhfaeuhzh57, 25 Polycystic qicancu70 12/27/12 Active Vitamin D 07/30/13 Active vlvxktyrqm37 1Data migrated from [employer] on 02/23/15. [...] Reactions, Alerts No Known Medication Allergies Medications lisinopril 40 mg oral tablet 40 mg = 1 tab, PO, Daily, # 90 tab, 0 Refill(s), Pharmacy: [id number] Start Date: 03/15/19 Status: Ordered Results No data available for [...]
--- OUTSIDE RECORDS SUMMARY | 2020-01-29 23:58 | XMS REPORT | Summary of Care ---
Author Author [facility] Primary Care [facility] Address Unknown Phone Unavailable Encounter HQ Amberntr_alisteven(FIN) [id number] Date(s): 12/02/18 - 12/03/18 [facility] [address] [facility] [address] [place] [address]- [phone] Vital Signs No data available for this section Problem List Condition Effective Dates Status Health Status Informan t Abnormal cytology 12/05/10 Active findings1 Abnormal vaginal 11/28/12 Active bleeding2 Acute upper Resolved respiratory infection3 Alopecia4 11/04/13 Active Ankle pain5, 6 01/27/15 Active Bacterial vaginosis7 09/28/11 Resolved Benign Active hypertension(Confirm ed)8 Chest pain9 07/30/13 Active Zdysdlccvx11 04/07/14 Active Tkonck60 12/27/12 Active Electrocardiogram 12/27/12 Active wkbzefum16 Fiykimmt14 07/30/14 Active Jlngbmvxmdrbkh24 02/04/14 Active Impaired glucose 07/30/14 Active lxkldcjit89 Joint pain16, 17 01/27/15 Active Microscopic 11/13/14 Active , 19 Rvzgmax54 12/05/10 Active Otitis tickibi06 03/18/12 Resolved Patient 05/31/12 Active noncompliance - glrfjac44 Aqxssypwskp17 03/18/12 Resolved Physical examination 10/30/14 Active jaqoijjty98, 25 Polycystic lkrlzxy17 12/27/12 Active Vitamin D 07/30/13 Active 1Data migrated from [employer] on 02/23/15. [...] Reg Smoking Cessation Counseling Yes2 entered on: 11/21/18 1crunches/push ups 2Patinet states that she smokes cigars sometimes, a few times a month. Assessment and Plan No data available for this section
--- OUTSIDE RECORDS SUMMARY | 2020-01-29 23:58 | XMS REPORT | Summary of Care ---
Author Author [facility] Organization [facility] Address Unknown Phone Unavailable Encounter HQ Anali(MARVIN) [id number] Date(s): 03/06/18 - 03/06/18 [facility] [address] [place] [address]- Encounter Diagnosis Hypertensive urgency (Discharge Diagnosis) - 03/06/18 Discharge Disposition: Home or Self Care Attending Physician: Gurvinder Hammond MD Vital Signs 1 2 3 Most recent to oldest [Reference Range]: 165.1 cm (03/06/18 4:46 PM) Height 98.7 DegF (03/06/18 7:08 PM) 98.5 DegF (03/06/18 5:51 PM) 98.7 DegF (03/06/18 4:46 PM) Temperature Oral [96.4-99.1 DegF] 167/118 mmHg *HI* (03/06/18 7:08 PM) 202/128 mmHg *HI* (03/06/18 5:51 PM) 193/146 mmHg *HI* (03/06/18 4:46 PM) Blood Pressure [90-140/60-90 mmHg] 16 BRMIN (03/06/18 7:08 PM) 16 BRMIN (03/06/18 5:51 PM) 18 BRMIN (03/06/18 4:46 PM) Respiratory Rate [14-20 BRMIN] 86 bpm (03/06/18 7:08 PM) 99 bpm (03/06/18 5:51 PM) 95 bpm (03/06/18 4:46 PM) Peripheral Pulse Rate [60-100 bpm] 108.636 kg (03/06/18 4:46 PM) Weight 39.85 m2 (03/06/18 4:46 PM) Body Mass Index Problem List Condition Effective Dates Status Health Status Informan t Abnormal cytology 12/05/10 Active findings1 Abnormal vaginal 11/28/12 Active bleeding2 Acute upper Resolved respiratory infection3 Alopecia4 11/04/13 Active Ankle pain5, 6 01/27/15 Active Bacterial vaginosis7 09/28/11 Resolved Benign Active hypertension(Confirm ed)8 Chest pain9 07/30/13 Active Phlviglzyb57 04/07/14 Active Gejzhv85 12/27/12 Active Electrocardiogram 12/27/12 Active omniftiz37 Iietuscf05 07/30/14 Active Ljspknkeawapgr95 02/04/14 Active Impaired glucose 07/30/14 Active jekmthmwp13 Joint pain16, 17 01/27/15 Active Microscopic 11/13/14 Active kqkuhlywx89, 19 Esczxmw32 12/05/10 Active Otitis 03/18/12 Resolved Patient 05/31/12 Active noncompliance - rdauzmt80 Mutvcdjmzro61 03/18/12 Resolved Physical examination 10/30/14 Active yzhxbjmgc06, 25 Polycystic 12/27/12 Active Vitamin D 07/30/13 Active qdksabmbks79 1Data migrated from [employer] on 02/23/15. [...] Substance Reaction Severity Status NKDA Active Medications Saline Flush 0.9% 10 mL, Route: IVP, Drug Form: INJ, Dosing Weight 113.182, kg, PRN, PRN Line Flus h, Start date: 03/06/18 16:44:00 CDT, Duration: 30 day, Stop date: 04/05/18 16:4 3:00 CDT Notes: (Same as: BD Posiflush) Start Date: 03/06/18 Stop Date: 03/06/18 Status: Discontinued Tylenol 975 mg, Route: PO, Drug form: TAB, ONCE, Dosing Weight 108.636, kg, Priority: ST AT, Start date: 03/06/18 17:52:00 CDT, Stop date: 03/06/18 17:52:00 CDT Start Date: 03/06/18 Stop Date: 03/06/18 Status: Completed Results ELECTROLYTES Most recent to 1 oldest [Reference Range]: Sodium Lvl [135-145 141 mEq/L mEq/L] (03/06/18 6:02 PM) Potassium Lvl 3.3 mEq/L [3.5-5.1 mEq/L] *LOW* (03/06/18 6:02 PM) Chloride Lvl [95-109 105 mEq/L mEq/L] (03/06/18 6:02 PM) CO2 [24-32 mEq/L] 29 mEq/L (03/06/18 6:02 PM) AGAP [10.0-20.0 10.3 mEq/L mEq/L] (03/06/18 6:02 PM) CHEM PANEL Most recent to 1 oldest [Reference Range]: Creatinine Lvl 1.40 mg/dL [0.50-1.40 mg/dL] (03/06/18 6:02 PM) eGFR 47 mL/min/1.73m2 1 *NA* (03/06/18 6:02 PM) BUN [7-22 mg/dL] 16 mg/dL (03/06/18 6:02 PM) B/C Ratio [6-25] 11 (03/06/18 6:02 PM) Glucose Lvl [70-99 93 mg/dL mg/dL] (03/06/18 6:02 PM) Total Protein 7.7 g/dL [6.4-8.4 g/dL] (03/06/18 6:02 PM) Albumin Lvl [3.5-5.0 3.6 g/dL g/dL] (03/06/18 6:02 PM) Globulin [2.7-4.2 4.1 g/dL g/dL] (03/06/18 6:02 PM) A/G Ratio [0.7-1.6] 0.9 (03/06/18 6:02 PM) Calcium Lvl 8.5 mg/dL [8.5-10.5 mg/dL] (03/06/18 6:02 PM) ALT [0-65 unit/L] 16 unit/L (03/06/18 6:02 PM) AST [0-37 unit/L] 16 unit/L (03/06/18 6:02 PM) Alk Phos [39-136 49 unit/L unit/L] (03/06/18 6:02 PM) Bili Total [0.2-1.3 0.5 mg/dL mg/dL] (03/06/18 6:02 PM) 1Result Comment: The eGFR is calculated using the [...] from the National Kidney Disease Education Program ( NKDEP) which additionally recommends that when the eGFR is used in patients with extremes of body mass index for purposes of drug dosing, the eGFR should be mul tiplied by the estimated BMI. CARDIAC ENZYMES Most recent to 1 oldest [Reference Range]: Total CK [12-191 95 unit/L unit/L] (03/06/18 6:02 PM) CK MB [0.5-3.6 <0.5 ng/mL ng/mL] (03/06/18 6:02 PM) CK MB Index <0.5 [0.0-2.5] (03/06/18 6:02 PM) Troponin-I <0.02 ng/mL [0.00-0.40 ng/mL] (03/06/18 6:02 PM) URINE CHEM Most recent to 1 oldest [Reference Range]: U Preg [Negative] Negative (03/06/18 6:02 PM) URINE AND STOOL Most recent to 1 oldest [Reference Range]: UA Turbidity [Clear] Clear (03/06/18 6:02 PM) UA Color [Yellow] Light Yellow *NA* (03/06/18 6:02 PM) UA pH [5.0-8.0] 7.0 (03/06/18 6:02 PM) UA Spec Grav 1.011 [<=1.030] (03/06/18 6:02 PM) UA Glucose [Negative Negative mg/dL mg/dL] *NA* (03/06/18 6:02 PM) UA Blood [Negative] Moderate *ABN* (03/06/18 6:02 PM) UA Ketones [Negative Negative mg/dL mg/dL] *NA* (03/06/18 6:02 PM) UA Protein [Negative 30 mg/dL mg/dL] *ABN* (03/06/18 6:02 PM) UA Urobilinogen <=1.0 mg/dL [0.1-1.0 mg/dL] *NA* (03/06/18 6:02 PM) UA Bili [Negative] Negative *NA* (03/06/18 6:02 PM) UA Leuk Est Negative [Negative] (03/06/18 6:02 PM) UA Nitrite Negative [Negative] (03/06/18 6:02 PM) UA RBC [0-2 /HPF] 2 /HPF (03/06/18 6:02 PM) UA Sq Epi [Few /LPF] Many /LPF *ABN* (03/06/18 6:02 PM) HEMATOLOGY Most recent to 1 oldest [Reference Range]: WBC [3.7-10.4 K/CMM] 6.1 K/CMM (03/06/18 6:02 PM) RBC [4.20-5.40 4.10 M/CMM M/CMM] *LOW* (03/06/18 6:02 PM) Hgb [12.0-16.0 g/dL] 12.6 g/dL (03/06/18 6:02 PM) Hct [36.0-48.0 %] 38.4 % (03/06/18 6:02 PM) MCV [80.0-98.0 fL] 93.6 fL (03/06/18 6:02 PM) MCH [27.0-31.0 pg] 30.7 pg (03/06/18 6:02 PM) MCHC [32.0-36.0 32.8 g/dL g/dL] (03/06/18 6:02 PM) RDW [11.5-14.5 %] 14.2 % (03/06/18 6:02 PM) MPV [7.4-10.4 fL] 8.2 fL (03/06/18 6:02 PM) Platelet [133-450 255 K/CMM K/CMM] (03/06/18 6:02 PM) Segs [45.0-75.0 %] 54.4 % (03/06/18 6:02 PM) Lymphocytes 37.5 % [20.0-40.0 %] (03/06/18 6:02 PM) Monocytes [2.0-12.0 6.7 % %] (03/06/18 6:02 PM) Eosinophils [0.0-4.0 0.7 % %] (03/06/18 6:02 PM) Basophils [0.0-1.0 0.7 % %] (03/06/18 6:02 PM) Segs-Bands # 3.3 K/CMM [1.5-8.1 K/CMM] (03/06/18 6:02 PM) Lymphocytes # 2.3 K/CMM [1.0-5.5 K/CMM] (03/06/18 6:02 PM) Monocytes # [0.0-0.8 0.4 K/CMM K/CMM] (03/06/18 6:02 PM) Eosinophils # 0.0 K/CMM [0.0-0.5 K/CMM] (03/06/18 6:02 PM) Basophils # [0.0-0.2 0.0 K/CMM K/CMM] (03/06/18 6:02 PM) Immunizations Given and Recorded Vaccine Date Status Refusal Reason tetanus-diphtheria toxoids1 09/26/10 Given diphtheria/pertussis, acel/tetanus adult2 09/26/10 Given 1Result Comment: adacel. Migrated from [employer] VIS: 08-11-08 given September 26, 2010. ; Data migrated from [employer] on 10/25/2015. 2Result Comment: adacel. Migrated from OBS ; Data migrated from [employer] on 10/25/2015. Procedures No data available for [...] Cessation Counseling Yes2 entered on: 03/06/18 1crunches/push ups 2Patinet states that she smokes cigars sometimes, a few times a month. Assessment and Plan No data available for this section
--- OUTSIDE RECORDS SUMMARY | 2020-01-29 23:58 | XMS REPORT | Summary of Care ---
Author Author [facility] Primary Care [facility] Address Unknown Phone Unavailable Encounter HQ Amberntr_alisteven(FIN) [id number] Date(s): 08/12/19 - 08/13/19 [facility] Primary Care [facility] [address] [place] [address] [phone] Vital Signs No data available for this section Problem List Condition Effective Dates Status Health Status Informan t Abnormal cytology 12/05/10 Active findings1 Abnormal vaginal 11/28/12 Active bleeding2 Acute upper Resolved respiratory infection3 Alopecia4 11/04/13 Active Ankle pain5, 6 01/27/15 Active Bacterial vaginosis7 09/28/11 Resolved Benign Active hypertension(Confirm ed)8 Chest pain9 07/30/13 Active Rcyyqbzwhj33 04/07/14 Active Wpepjy41 12/27/12 Active Electrocardiogram 12/27/12 Active mkigtkir68 Mspjtjel34 07/30/14 Active Wdeuuvvgkqazgc81 02/04/14 Active Hyperlipidemia(Confi Active rmed) Impaired glucose 07/30/14 Active qmximavry80 Joint pain16, 17 01/27/15 Active Microalbuminuria(Con Active firmed) Microscopic 11/13/14 Active ocagafavr92, 19 Edptroc50 12/05/10 Active Otitis vwzvkad72 03/18/12 Resolved Patient 05/31/12 Active noncompliance - anwdfrx41 Phcztinmmku82 03/18/12 Resolved Physical examination 10/30/14 Active bzzepaiqp83, 25 Polycystic vxumadr28 12/27/12 Active Vitamin D 07/30/13 Active otpcuroxuc59 1Data migrated from [employer] on 02/23/15. [...]
--- OUTSIDE RECORDS SUMMARY | 2020-01-29 23:58 | XMS REPORT | Summary of Care ---
Author Author [facility] Primary Care [facility] Address Unknown Phone Unavailable Encounter HQ Anali(FIN) [id number] Date(s): 07/07/19 - 07/07/19 [facility] Primary Care [facility] [address] [place] [address]- [phone] Discharge Disposition: Home or Self Care Attending Physician: Kenzie Simmons MD Vital Signs Most recent to 1 oldest [Reference Range]: Height 165.1 cm (07/07/19 3:17 PM) Temperature Oral 98.7 DegF [96.4-99.1 DegF] (07/07/19 3:17 PM) Blood Pressure 102/74 mmHg [90-140/60-90 mmHg] (07/07/19 3:17 PM) Peripheral Pulse 97 bpm Rate [60-100 bpm] (07/07/19 3:17 PM) Weight 111.477 kg (07/07/19 3:17 PM) Body Mass Index 40.9 m2 (07/07/19 3:17 PM) Problem List Condition Effective Dates Status Health Status Informan t Abnormal cytology 12/05/10 Active findings1 Abnormal vaginal 11/28/12 Active bleeding2 Acute upper Resolved respiratory infection3 Alopecia4 11/04/13 Active Ankle pain5, 6 01/27/15 Active Bacterial vaginosis7 09/28/11 Resolved Benign Active hypertension(Confirm ed)8 Chest pain9 07/30/13 Active Tyrnqmdlzl96 04/07/14 Active Mikkll49 12/27/12 Active Electrocardiogram 12/27/12 Active epurxuir35 Iuzpgacp27 07/30/14 Active Jfqmoagnmnoyqx51 02/04/14 Active Hyperlipidemia(Confi Active rmed) Impaired glucose 07/30/14 Active mxaylcpij58 Joint pain16, 17 01/27/15 Active Microalbuminuria(Con Active firmed) Microscopic 11/13/14 Active xfevpxdwc65, 19 Pawjnpj02 12/05/10 Active Otitis pitcloi99 03/18/12 Resolved Patient 05/31/12 Active noncompliance - Rgjprqpzvlp51 03/18/12 Resolved Physical examination 10/30/14 Active trwbxnauk22, 25 Polycystic 12/27/12 Active Vitamin D 07/30/13 Active vlcbepdnmo42 1Data migrated from [employer] on 02/23/15. [...] Daily, # 90 tab, 1 Refill(s), [facility] Start Date: 07/07/19 Status: Ordered hydrochlorothiazide 25 mg oral tablet = 1 tab, PO, Daily, # 90 tab, 1 Refill(s), Pharmacy: [facility] Start Date: 07/07/19 Status: Ordered lisinopril 40 mg oral tablet 40 mg = 1 tab, PO, Daily, # 90 tab, 0 Refill(s), Pharmacy: [facility] Start Date: 07/07/19 Status: Ordered Results No data available for this section Immunizations Given and Recorded Vaccine Date Status Refusal Reason tetanus-diphtheria toxoids1 09/26/10 Given diphtheria/pertussis, acel/tetanus adult2 09/26/10 Given 1Result Comment: adacel. Migrated from [employer] VIS: 08-11-08 given September 26, 2010. ; Data migrated from [employer] on 10/25/2015. 2Result Comment: adacel. Migrated from OBS ; Data migrated from [employer] on 10/25/2015. Procedures No data available for [...]
--- OUTSIDE RECORDS SUMMARY | 2020-01-29 23:58 | XMS REPORT | Summary of Care ---
Author Author [facility] Address Unknown Phone Unavailable Encounter HQ Anali(MARVIN) [id number] Date(s): 08/22/16 - 08/22/16 [facility] [address] [place], [place] [address] [phone] Discharge Disposition: Home or Self Care Attending Physician: Mikhail Rasmussen MD Vital Signs Most recent to 1 2 oldest [Reference Range]: Height 165.1 cm (08/22/16 8:48 AM) Temperature Oral 98.9 DegF [96.4-99.1 DegF] (08/22/16 8:48 AM) Blood Pressure 144/105 mmHg 167/122 mmHg [90-140/60-90 mmHg] *HI* *HI* (08/22/16 9:35 AM) (08/22/16 8:48 AM) Respiratory Rate 18 BRMIN 18 BRMIN [14-20 BRMIN] (08/22/16 9:35 AM) (08/22/16 8:48 AM) Peripheral Pulse 84 bpm 90 bpm Rate [60-100 bpm] (08/22/16 9:35 AM) (08/22/16 8:48 AM) Weight 102.273 kg (08/22/16 8:48 AM) Body Mass Index 37.52 m2 (08/22/16 8:48 AM) Problem List Condition Effective Dates Status Health Status Informan t Abnormal cytology 12/05/10 Active findings1 Abnormal vaginal 11/28/12 Active bleeding2 Acute upper Resolved respiratory infection3 Alopecia4 11/04/13 Active Ankle pain5, 6 01/27/15 Active Bacterial vaginosis7 09/28/11 Resolved Benign hypertension8 Active Chest pain9 07/30/13 Active Gbklwhwykx45 04/07/14 Active Fpycpd46 4/5/13 Active Electrocardiogram 12/27/12 Active Vuspjmpy09 07/30/14 Active Lvgiqrdiwnnwrp24 02/04/14 Active Impaired glucose 07/30/14 Active yipuepkfp55 Joint pain16, 17 01/27/15 Active Microscopic 11/13/14 Active kbjtebtqn14, 19 Lizpatb68 12/05/10 Active Otitis qyddtsl62 03/18/12 Resolved Patient 05/31/12 Active noncompliance - mkimkps02 Bczgpyzqbmh31 03/18/12 Resolved Physical examination 10/30/14 Active qffqvvuzv35, 25 Polycystic nvvahhp15 12/27/12 Active Vitamin D 07/30/13 Active skckkepeyg37 1Data migrated from [employer] on 02/23/15. [...] [employer] on 03/31/15. 25Data migrated from [employer] on 02/23/15. 26Data migrated from [employer] on 02/23/15. 27Data migrated from [employer] on 02/23/15. Allergies, Adverse Reactions, Alerts Substance Reaction Severity Status NKDA Active Medications amoxicillin 875 mg oral tablet 875 mg = 1 tab, PO, Q12H, X 10 day, # 20 tab, 0 Refill(s) Start Date: 08/22/16 Stop Date: 09/01/16 Status: Ordered Cipro HC otic suspension 3 drp, RIGHT EAR, BID, X 10 day, # 10 ml, 0 Refill(s) Start Date: 08/22/16 Stop Date: 09/01/16 Status: Ordered Motrin 600 mg oral tablet 600 mg = 1 tab, PO, Q6H, take with food, X 5 day, # 20 tab, 0 Refill(s) Start Date: 08/22/16 Stop Date: 08/27/16 Status: Ordered Results No data available for this section Immunizations Given and Recorded Vaccine Date Status Refusal Reason diphtheria/pertussis, acel/tetanus adult1 09/26/10 Given tetanus-diphtheria toxoids2 09/26/10 Given 1Result Comment: adacel. Migrated from OBS ; Data migrated from [facility] on 10/25/2015. 2Result Comment: adacel. Migrated from OBS VIS: 08-11-08 given September 26, 2010. ; Data migrated from [facility] on 10/25/2015. Procedures No data available for [...]
--- OUTSIDE RECORDS SUMMARY | 2020-01-29 23:58 | XMS REPORT | Summary of Care ---
Author Author [facility] Primary Care [facility] Address Unknown Phone Unavailable Encounter HQ Christine_charley(FIN) [id number] Date(s): 11/21/18 - 11/21/18 [facility] Primary Care [facility] [address] [address]- [phone] Discharge Disposition: Home or Self Care Attending Physician: Kenzie Simmons MD Vital Signs Most recent to 1 oldest [Reference Range]: Height 165.1 cm (11/21/18 8:24 AM) Temperature Oral 98.2 DegF [96.4-99.1 DegF] (11/21/18 8:24 AM) Blood Pressure 147/101 mmHg [90-140/60-90 mmHg] *HI* (11/21/18 8:24 AM) Peripheral Pulse 87 bpm Rate [60-100 bpm] (11/21/18 8:24 AM) Weight 110.909 kg (11/21/18 8:24 AM) Body Mass Index 40.69 m2 (11/21/18 8:24 AM) Problem List Condition Effective Dates Status Health Status Informan t Abnormal cytology 12/05/10 Active findings1 Abnormal vaginal 11/28/12 Active bleeding2 Acute upper Resolved respiratory infection3 Alopecia4 11/04/13 Active Ankle pain5, 6 01/27/15 Active Bacterial vaginosis7 09/28/11 Resolved Benign Active hypertension(Confirm ed)8 Chest pain9 07/30/13 Active Zgaalmjdjq31 04/07/14 Active Hbysac84 12/27/12 Active Electrocardiogram 12/27/12 Active kglwukex66 Mwxjnzen04 07/30/14 Active Bsbykwvoyfbqid13 02/04/14 Active Impaired glucose 07/30/14 Active rwvrcsafb63 Joint pain16, 17 01/27/15 Active Microscopic 11/13/14 Active wtmotcrtv11, 19 Jonollx40 12/05/10 Active Otitis peryvhe92 6/25/12 Resolved Patient 05/31/12 Active noncompliance - Qgsfjmcgqbd62 03/18/12 Resolved Physical examination 10/30/14 Active kjbeileva86, 25 Polycystic klausek28 12/27/12 Active Vitamin D 07/30/13 Active oefojwiakp56 1Data migrated from [employer] on 02/23/15. [...] Substance Reaction Severity Status NKDA Active Medications lisinopril 40 mg oral tablet 40 mg = 1 tab, PO, Daily, # 90 tab, 0 Refill(s), Pharmacy: [id number] Start Date: 11/21/18 Status: Ordered Results No data available for this section Immunizations Given and Recorded Vaccine Date Status Refusal Reason tetanus-diphtheria toxoids1 09/26/10 Given diphtheria/pertussis, acel/tetanus adult2 09/26/10 Given 1Result Comment: adacel. Migrated from [employer] VIS: 08-11-08 given September 26, 2010. ; Data migrated from [employer] on 10/25/2015. 2Result Comment: adacel. Migrated from OBS ; Data migrated from [employer] on 10/25/2015. Procedures No data available for [...]
--- OUTSIDE RECORDS SUMMARY | 2020-01-29 23:58 | XMS REPORT | Summary of Care ---
Author Author [facility] Primary Care [facility] Address Unknown Phone Unavailable Encounter HQ Amberntr_charley(FIN) [id number] Date(s): 12/02/18 - 12/03/18 [facility] [address] [facility] [address] [place] [address]- [phone] Vital Signs No data available for this section Problem List Condition Effective Dates Status Health Status Informan t Abnormal cytology 12/05/10 Active findings1 Abnormal vaginal 11/28/12 Active bleeding2 Acute upper Resolved respiratory infection3 Alopecia4 11/04/13 Active Ankle pain5, 6 01/27/15 Active Bacterial vaginosis7 09/28/11 Resolved Benign Active hypertension(Confirm ed)8 Chest pain9 07/30/13 Active Ndwcqgtsoi02 04/07/14 Active Hndrkh42 12/27/12 Active Electrocardiogram 12/27/12 Active snkwhkri57 Wisfnumi98 07/30/14 Active Fcnqhqejubouao29 02/04/14 Active Impaired glucose 07/30/14 Active qozkdhscd37 Joint pain16, 17 01/27/15 Active Microscopic 11/13/14 Active , 19 Wwjydxi12 12/05/10 Active Otitis anobohj29 03/18/12 Resolved Patient 05/31/12 Active noncompliance - xcabybb73 Lmvtgibtmsx81 03/18/12 Resolved Physical examination 10/30/14 Active , 25 Polycystic veweope50 12/27/12 Active Vitamin D 07/30/13 Active cwmfcshyfh51 1Data migrated from [employer] on 02/23/15. [...]
--- OUTSIDE RECORDS SUMMARY | 2020-01-29 23:58 | XMS REPORT | Summary of Care ---
Author Author [facility] Primary Care [facility] Address Unknown Phone Unavailable Encounter HQ Amberntr_alisteven(FIN) [id number] Date(s): 10/10/19 - 10/10/19 [facility] Primary [facility] [address] [facility] [address] [place] [address]- [phone] Attending Physician: Kenzie Simmons MD Vital Signs No data available for this section Problem List Condition Effective Dates Status Health Status Informan t Abnormal cytology 12/05/10 Active findings1 Abnormal vaginal 11/28/12 Active bleeding2 Acute upper Resolved respiratory infection3 Alopecia4 11/04/13 Active Ankle pain5, 6 01/27/15 Active Bacterial vaginosis7 09/28/11 Resolved Benign Active hypertension(Confirm ed)8 Chest pain9 07/30/13 Active Twmfdtpedi08 04/07/14 Active Eatnij13 12/27/12 Active Electrocardiogram 12/27/12 Active fjdubzmw92 Rwyeeqym66 07/30/14 Active Ixudnefyjnpgxi97 02/04/14 Active Hyperlipidemia(Confi Active rmed) Impaired glucose 07/30/14 Active brovzqqhm28 Joint pain16, 17 01/27/15 Active Microalbuminuria(Con Active firmed) Microscopic 11/13/14 Active dwjyzuhwo93, 19 Xvupihw81 12/05/10 Active Otitis irlbvsd03 03/18/12 Resolved Patient 05/31/12 Active noncompliance - twxnybj32 Irsjiczvhyb25 03/18/12 Resolved Physical examination 10/30/14 Active yurwtjbso59, 25 Polycystic 12/27/12 Active Vitamin D 07/30/13 Active zqpsagjsew44 1Data migrated from [employer] on 02/23/15. [...]
--- OUTSIDE RECORDS SUMMARY | 2020-01-29 23:58 | XMS REPORT | Summary of Care ---
Author Author [facility] Outpatient [facility] Organization [facility] Address Unknown Phone Unavailable Encounter IRMA Briones(MARVIN) [id number] Date(s): 10/23/18 - 10/23/18 [facility] Outpatient Imaging [facility] [address] [facility] [address] [place], [place] [address] [phone] Discharge Disposition: Home or Self Care Attending Physician: Kenzie iSmmons MD Referring Physician: Kenzie Simmons MD Vital Signs No data available for this section Problem List Condition Effective Dates Status Health Status Informan t Abnormal cytology 12/05/10 Active findings1 Abnormal vaginal 11/28/12 Active bleeding2 Acute upper Resolved respiratory infection3 Alopecia4 11/04/13 Active Ankle pain5, 6 01/27/15 Active Bacterial vaginosis7 09/28/11 Resolved Benign Active hypertension(Confirm ed)8 Chest pain9 07/30/13 Active Sbwvkvmrcq60 04/07/14 Active Nxpmkf67 12/27/12 Active Electrocardiogram 12/27/12 Active hgjlagjl44 Fhlhynsw84 07/30/14 Active Jymouzcgxyninh54 02/04/14 Active Impaired glucose 07/30/14 Active Joint pain16, 17 01/27/15 Active Microscopic 11/13/14 Active meubrdyah88, 19 Tauoopr97 12/05/10 Active Otitis netmyix70 03/18/12 Resolved Patient 05/31/12 Active noncompliance - Mxzrzejubhq47 03/18/12 Resolved Physical examination 10/30/14 Active jexeqdnls44, 25 Polycystic cwetmpe40 12/27/12 Active Vitamin D 07/30/13 Active 1Data [...] Reg Smoking Cessation Counseling Yes2 entered on: 10/09/18 1crunches/push ups 2Patinet states that she smokes cigars sometimes, a few times a month. Assessment and Plan No data available for this section
--- OUTSIDE RECORDS SUMMARY | 2020-01-29 23:58 | XMS REPORT | Summary of Care ---
Author Author [facility] Primary Care [facility] Primary [facility] Address Unknown Phone Unavailable Encounter HQ Amberntr_alisteven(FIN) [id number] Date(s): 08/12/19 - 08/13/19 [facility] Primary Care [facility] [address] [place] [address]- [phone] Vital Signs No data available for this section Problem List Condition Effective Dates Status Health Status Informan t Abnormal cytology 12/05/10 Active findings1 Abnormal vaginal 11/28/12 Active bleeding2 Acute upper Resolved respiratory infection3 Alopecia4 11/04/13 Active Ankle pain5, 6 01/27/15 Active Bacterial vaginosis7 09/28/11 Resolved Benign Active hypertension(Confirm ed)8 Chest pain9 07/30/13 Active Mitckssxeg80 04/07/14 Active Jjtmbq18 12/27/12 Active Electrocardiogram 12/27/12 Active epntuila85 Odpxvazy59 07/30/14 Active Xuqfzhsiyrmqxg28 02/04/14 Active Hyperlipidemia(Confi Active rmed) Impaired glucose 07/30/14 Active Joint pain16, 17 01/27/15 Active Microalbuminuria(Con Active firmed) Microscopic 11/13/14 Active gpvsjrfad04, 19 Vherhyr94 12/05/10 Active Otitis pewvbho23 03/18/12 Resolved Patient 05/31/12 Active noncompliance - nruhbgf17 Ioqvqwkhzsy19 03/18/12 Resolved Physical examination 10/30/14 Active xbrcsynxd17, 25 Polycystic dszjygd01 12/27/12 Active Vitamin D 07/30/13 Active dvbvjraslj36 1Data migrated from [employer] on 02/23/15. [...]
--- OUTSIDE RECORDS SUMMARY | 2020-01-29 23:58 | XMS REPORT | Summary of Care ---
Author Author [facility] Primary Care [facility] Organization [facility] Primary Care [facility] Address Unknown Phone Unavailable Care Team Providers Care Grade Teacher Name Role Phone Kenzie Simmons PCP Encounter HQ Encntr_charley(FIN) [id number] Date(s): 11/20/19 - 11/21/[address] [place], [place] [address]- [phone] Vital Signs No data available for this section Problem List Condition Effective Dates Status Health Status Informan t Abnormal cytology 12/05/10 Active findings1 Abnormal vaginal 11/28/12 Active bleeding2 Acute upper Resolved respiratory infection3 Alopecia4 11/04/13 Active Ankle pain5, 6 01/27/15 Active Bacterial vaginosis7 09/28/11 Resolved Benign Active hypertension(Confirm ed)8 Chest pain9 07/30/13 Active Fqtifnwfst62 04/07/14 Active Wjmmck93 12/27/12 Active Electrocardiogram 12/27/12 Active xqqudfpy94 Spcnaieg48 07/30/14 Active Rnvxeewzlxhbvz71 02/04/14 Active Hyperlipidemia(Confi Active rmed) Impaired glucose 07/30/14 Active rwotoygmj12 Joint pain16, 17 01/27/15 Active Microalbuminuria(Con Active firmed) Microscopic 11/13/14 Active ifxklumyo24, 19 Cebehby49 12/05/10 Active Otitis anhctrj79 03/18/12 Resolved Patient 05/31/12 Active noncompliance - kycmxna15 Xyuqcskvpro01 03/18/12 Resolved Physical examination 10/30/14 Active baqfiuwld27, 25 Polycystic yewpibx52 12/27/12 Active Vitamin D 07/30/13 Active 1Data [...]
--- OUTSIDE RECORDS SUMMARY | 2020-01-29 23:58 | XMS REPORT | Summary of Care ---
Author Author [facility] Organization [facility] Address Unknown Phone Unavailable Encounter IRMA Ospinar_charley(FIN) [id number] Date(s): 01/19/20 - 01/20/20 [facility] [address] [phone] Vital Signs No data available for this section Problem List Condition Effective Dates Status Health Status Informan t Abnormal cytology 12/05/10 Active findings1 Abnormal vaginal 11/28/12 Active bleeding2 Acute upper Resolved respiratory infection3 Alopecia4 11/04/13 Active Ankle pain5, 6 01/27/15 Active Bacterial vaginosis7 09/28/11 Resolved Benign Active hypertension(Confirm ed)8 Chest pain9 07/30/13 Active Kjvmsjzzkj02 04/07/14 Active Zocrvj36 12/27/12 Active Electrocardiogram 12/27/12 Active bgehhljb92 Yuvvihio34 07/30/14 Active Wusviddnyblvqg16 02/04/14 Active Hyperlipidemia(Confi Active rmed) Impaired glucose 07/30/14 Active ilypsseok37 Joint pain16, 17 01/27/15 Active Microalbuminuria(Con Active firmed) Microscopic 11/13/14 Active wsflkubtx50, 19 Izxyime45 12/05/10 Active Otitis 03/18/12 Resolved Patient 05/31/12 Active noncompliance - luiyjax98 Sgzobfwfqgx86 03/18/12 Resolved Physical examination 10/30/14 Active lzbzalafp62, 25 Polycystic ocfgijr49 12/27/12 Active Vitamin D 07/30/13 Active goqpokcfrg83 1Data migrated from [employer] on 02/23/15. [...] Reactions, Alerts No Known Medication Allergies Medications Voltaren Topical 1% topical gel See Instructions, PRN for pain, 4 gm appl TOP QID, # 100 gm, 0 Refill(s), Pharma cy: [id number] Start Date: 01/20/20 Status: Ordered Results No data available for this section Immunizations Given and Recorded Vaccine Date Status Refusal Reason tetanus-diphtheria toxoids1 09/26/10 Given diphtheria/pertussis, acel/tetanus adult2 09/26/10 Given 1Result Comment: adacel. Migrated from OBS VIS: 08-11-08 given September 26, 2010. ; Data migrated from [employer] on 10/25/2015. 2Result Comment: adacel. Migrated from OBS ; Data migrated from [employer] on 10/25/2015. Procedures No data available for [...]
--- OUTSIDE RECORDS SUMMARY | 2020-01-29 23:58 | XMS REPORT | Summary of Care ---
Author Author [facility] Primary Care [facility] Primary [facility] Address Unknown Phone Unavailable Encounter HQ Amberntr_alisteven(FIN) [id number] Date(s): 08/12/19 - 08/13/19 [facility] Primary Care [facility] [address] [place] [address]- [phone] Vital Signs No data available for this section Problem List Condition Effective Dates Status Health Status Informan t Abnormal cytology 12/05/10 Active findings1 Abnormal vaginal 11/28/12 Active bleeding2 Acute upper Resolved respiratory infection3 Alopecia4 11/04/13 Active Ankle pain5, 6 01/27/15 Active Bacterial vaginosis7 09/28/11 Resolved Benign Active hypertension(Confirm ed)8 Chest pain9 07/30/13 Active Ypwbdvtrym00 04/07/14 Active Mtiomx74 12/27/12 Active Electrocardiogram 12/27/12 Active ygooijjw74 Pxzsqdya76 07/30/14 Active Yiwnlockramiyj33 02/04/14 Active Hyperlipidemia(Confi Active rmed) Impaired glucose 07/30/14 Active xshomwvhl20 Joint pain16, 17 01/27/15 Active Microalbuminuria(Con Active firmed) Microscopic 11/13/14 Active sjatnksnd86, 19 Rnekleo59 12/05/10 Active Otitis oxaualb32 03/18/12 Resolved Patient 05/31/12 Active noncompliance - yruqxcr08 Sbblhrdhawb17 03/18/12 Resolved Physical examination 10/30/14 Active toxforiwm93, 25 Polycystic 12/27/12 Active Vitamin D 07/30/13 Active voqrhobskt18 1Data migrated from [employer] on 02/23/15. [...]
--- OUTSIDE RECORDS SUMMARY | 2020-01-29 23:58 | XMS REPORT | Summary of Care ---
Author Author [facility] Primary Care [facility] Address Unknown Phone Unavailable Encounter HQ Amberntr_alisteven(FIN) [id number] Date(s): 11/29/17 - 11/30/17 [facility] [address] [facility] [address] [place] [address]- [phone] Vital Signs No data available for this section Problem List Condition Effective Dates Status Health Status Informan t Abnormal cytology 12/05/10 Active findings1 Abnormal vaginal 11/28/12 Active bleeding2 Acute upper Resolved respiratory infection3 Alopecia4 11/04/13 Active Ankle pain5, 6 01/27/15 Active Bacterial vaginosis7 09/28/11 Resolved Benign Active hypertension(Confirm ed)8 Chest pain9 07/30/13 Active Llfetuxjzc96 04/07/14 Active Aahogc85 12/27/12 Active Electrocardiogram 12/27/12 Active aukisuwh10 Imgloqfr83 07/30/14 Active Gsswfnbutvxpui38 02/04/14 Active Impaired glucose 07/30/14 Active qpqxslcwa45 Joint pain16, 17 01/27/15 Active Microscopic 11/13/14 Active waelrbqdn94, 19 Acxcnbg69 12/05/10 Active Otitis 03/18/12 Resolved Patient 05/31/12 Active noncompliance - igpxqcg13 Armbofdvlar51 03/18/12 Resolved Physical examination 10/30/14 Active hexralqkj46, 25 Polycystic buspcpq10 12/27/12 Active Vitamin D 07/30/13 Active qfrmaoemyh93 1Data migrated from [employer] on 02/23/15. [...] Substance Reaction Severity Status NKDA Active Medications hydrochlorothiazide 25 mg oral tablet See Instructions, TAKE ONE TABLET BY MOUTH ONCE DAILY, # 7 tab, 0 Refill(s), Pha acy: [facility] 2717 Start Date: 11/30/17 Stop Date: 03/06/18 Status: Discontinued lisinopril 30 mg oral tablet See Instructions, TAKE ONE TABLET BY MOUTH ONCE DAILY, # 7 tab, 0 Refill(s), Pha rmacy: [facility] 2717 Start Date: 11/30/17 Stop Date: 03/06/18 Status: Discontinued Results No data available for this section Immunizations Given and Recorded Vaccine Date Status Refusal Reason tetanus-diphtheria toxoids1 09/26/10 Given diphtheria/pertussis, acel/tetanus adult2 09/26/10 Given 1Result Comment: adacel. Migrated from OBS VIS: 08-11-08 given September 26, 2010. ; Data migrated from [employer] on 10/25/2015. 2Result Comment: adacel. Migrated from OBS ; Data migrated from [employer] on 10/25/2015. Procedures No data available for [...]
--- OUTSIDE RECORDS SUMMARY | 2020-01-29 23:58 | XMS REPORT | Summary of Care ---
Author Author [facility] Primary Care [facility] Primary Care [facility] Address Unknown Phone Unavailable Encounter HQ Amberntr_alisteven(FIN) [id number] Date(s): 08/12/19 - 08/13/19 [facility] Primary Care [facility] [address] [place] [address]- [phone] Vital Signs No data available for this section Problem List Condition Effective Dates Status Health Status Informan t Abnormal cytology 12/05/10 Active findings1 Abnormal vaginal 11/28/12 Active bleeding2 Acute upper Resolved respiratory infection3 Alopecia4 11/04/13 Active Ankle pain5, 6 01/27/15 Active Bacterial vaginosis7 09/28/11 Resolved Benign Active hypertension(Confirm ed)8 Chest pain9 07/30/13 Active Gtymwsstdv96 04/07/14 Active Uhiirq00 12/27/12 Active Electrocardiogram 12/27/12 Active cmijicmu42 Bfsgmwob62 07/30/14 Active Swiqlusybeqkox96 02/04/14 Active Hyperlipidemia(Confi Active rmed) Impaired glucose 07/30/14 Active jrmwkgbjy18 Joint pain16, 17 01/27/15 Active Microalbuminuria(Con Active firmed) Microscopic 11/13/14 Active , 19 Pbgluiq46 12/05/10 Active Otitis kpqjohl96 03/18/12 Resolved Patient 05/31/12 Active noncompliance - tngkxra65 Pugvfygzuor62 03/18/12 Resolved Physical examination 10/30/14 Active bukhzfuiz08, 25 Polycystic didqwsz52 12/27/12 Active Vitamin D 07/30/13 Active erydplqmcf14 1Data migrated from [employer] on 02/23/15. [...]
--- OUTSIDE RECORDS SUMMARY | 2020-01-29 23:58 | XMS REPORT | Summary of Care ---
Author Author [facility] Primary Care [facility] Address Unknown Phone Unavailable Encounter HQ Christine_charley(FIN) [id number] Date(s): 03/06/18 - 03/06/18 [facility] Primary Care [facility] [address] [address] [phone] Discharge Disposition: Home or Self Care Attending Physician: Kenzie Simmons MD Vital Signs Most recent to 1 oldest [Reference Range]: Height 165.1 cm (03/06/18 2:50 PM) Temperature Oral 98.9 DegF [96.4-99.1 DegF] (03/06/18 2:50 PM) Blood Pressure 199/149 mmHg [90-140/60-90 mmHg] *HI* (03/06/18 2:50 PM) Peripheral Pulse 98 bpm Rate [60-100 bpm] (03/06/18 2:50 PM) Weight 113.182 kg (03/06/18 2:50 PM) Body Mass Index 41.52 m2 (03/06/18 2:50 PM) Problem List Condition Effective Dates Status Health Status Informan t Abnormal cytology 12/05/10 Active findings1 Abnormal vaginal 11/28/12 Active bleeding2 Acute upper Resolved respiratory infection3 Alopecia4 11/04/13 Active Ankle pain5, 6 01/27/15 Active Bacterial vaginosis7 09/28/11 Resolved Benign Active hypertension(Confirm ed)8 Chest pain9 07/30/13 Active Gsyylnjrlv98 04/07/14 Active Welvko78 12/27/12 Active Electrocardiogram 12/27/12 Active Mztitlpx73 07/30/14 Active Wwmffsybzuzhqd20 02/04/14 Active Impaired glucose 07/30/14 Active zooguwrvp46 Joint pain16, 17 01/27/15 Active Microscopic 11/13/14 Active wvlykrlso72, 19 Azklfua73 12/05/10 Active Otitis hertpdo71 03/18/12 Resolved Patient 05/31/12 Active noncompliance - xyvmfdh86 Sgvsfaiggkr09 03/18/12 Resolved Physical examination 10/30/14 Active hwqwdzkuw93, 25 Polycystic omunipr11 12/27/12 Active Vitamin D 07/30/13 Active 1Data [...] Active Medications hydrochlorothiazide 25 mg oral tablet 25 mg = 1 tab, PO, Daily, # 90 tab, 0 Refill(s), Pharmacy: [facility] , due for an appt. Start Date: 03/06/18 Status: Ordered hydrocortisone topical 2.5% cream 1 appl, TOP, BID, PRN dermatitis, # 30 gm, 0 Refill(s), Pharmacy: [facility] Start Date: 03/06/18 Stop Date: 03/06/18 Status: Completed lisinopril 30 mg oral tablet 30 mg = 1 tab, PO, Daily, # 90 tab, 0 Refill(s), [facility] Start Date: 03/06/18 Status: Ordered Results No data available for this section Immunizations Given and Recorded Vaccine Date Status Refusal Reason tetanus-diphtheria toxoids1 09/26/10 Given diphtheria/pertussis, acel/tetanus adult2 09/26/10 Given 1Result Comment: adacel. Migrated from [employer] VIS: 08-11-08 given September 26, 2010. ; Data migrated from [employer] on 10/25/2015. 2Result Comment: adacel. Migrated from [employer] ; Data migrated from [employer] on 10/25/2015. Procedures No data available for [...]
--- OUTSIDE RECORDS SUMMARY | 2020-01-29 23:58 | XMS REPORT | Summary of Care ---
Author Author [facility] Primary Care [facility] Address Unknown Phone Unavailable Encounter HQ Encntr_alisteven(FIN) [id number] Date(s): 12/26/18 - 12/27/18 [facility] Primary [facility] [address] [place], [place] [address]- [phone] Vital Signs No data available for this section Problem List Condition Effective Dates Status Health Status Informan t Abnormal cytology 12/05/10 Active findings1 Abnormal vaginal 11/28/12 Active bleeding2 Acute upper Resolved respiratory infection3 Alopecia4 11/04/13 Active Ankle pain5, 6 01/27/15 Active Bacterial vaginosis7 09/28/11 Resolved Benign Active hypertension(Confirm ed)8 Chest pain9 07/30/13 Active Ndurijhigp14 04/07/14 Active Cktevs18 12/27/12 Active Electrocardiogram 12/27/12 Active ulwoisrd59 Oiwxwvqb18 07/30/14 Active Jqgctiiwlxmppk40 02/04/14 Active Impaired glucose 07/30/14 Active ghwhmohdn69 Joint pain16, 17 01/27/15 Active Microscopic 11/13/14 Active ifqtnignv95, 19 Pqtnrqc89 12/05/10 Active Otitis kxxdwio86 03/18/12 Resolved Patient 05/31/12 Active noncompliance - ljgeycq25 Pioorlxaiow42 03/18/12 Resolved Physical examination 10/30/14 Active , 25 Polycystic mkvibfo75 12/27/12 Active Vitamin D 07/30/13 Active uykuwlxvrv90 1Data migrated from [employer] on 02/23/15. [...]
--- OUTSIDE RECORDS SUMMARY | 2020-01-29 23:58 | XMS REPORT | Summary of Care ---
Author Author [facility] Primary Care [facility] Address Unknown Phone Unavailable Encounter [facility] [employer]ntr_alisteven(FIN) [id number] Date(s): 11/29/17 - 11/30/17 [facility] [address] [facility] [address] [place] [address]- [phone] Vital Signs No data available for this section Problem List Condition Effective Dates Status Health Status Informan t Abnormal cytology 12/05/10 Active findings1 Abnormal vaginal 11/28/12 Active bleeding2 Acute upper Resolved respiratory infection3 Alopecia4 11/04/13 Active Ankle pain5, 6 01/27/15 Active Bacterial vaginosis7 09/28/11 Resolved Benign Active hypertension(Confirm ed)8 Chest pain9 07/30/13 Active Zgvdlgezhu32 04/07/14 Active Qhczdk43 12/27/12 Active Electrocardiogram 12/27/12 Active oaafhllu12 Jploklcl61 07/30/14 Active Wumhekdtxqbiop33 02/04/14 Active Impaired glucose 07/30/14 Active jzinpvkmp72 Joint pain16, 17 01/27/15 Active Microscopic 11/13/14 Active cncabohtr30, 19 Nmlcgln96 12/05/10 Active Otitis admjdpb06 03/18/12 Resolved Patient 05/31/12 Active noncompliance - ttcqkqa81 Aapogtojsnj81 03/18/12 Resolved Physical examination 10/30/14 Active , 25 Polycystic dwrqvdi69 12/27/12 Active Vitamin D 07/30/13 Active npjfycfaqe24 1Data migrated from [employer] on 02/23/15. [...] # 7 tab, 0 Refill(s), Pha acy: [facility] 2717 Start Date: 11/30/17 Stop Date: 03/06/18 Status: Discontinued lisinopril 30 mg oral tablet See Instructions, TAKE ONE TABLET BY MOUTH ONCE DAILY, # 7 tab, 0 Refill(s), Pha rmacy: [facility] 27[address] Start Date: 11/30/17 Stop Date: 03/06/18 Status: Discontinued Results No data available for this section Immunizations Given and Recorded Vaccine Date Status Refusal Reason tetanus-diphtheria toxoids1 09/26/10 Given diphtheria/pertussis, acel/tetanus adult2 09/26/10 Given 1Result Comment: adacel. Migrated from OBS VIS: 08-11-08 given September 26, 2010. ; Data migrated from [employer] on 10/25/2015. 2Result Comment: adacel. Migrated from OBS ; Data migrated from [employer] on 10/25/2015. Procedures No data available for [...]
[2020-01-30] MEDS ORDERED: KETOROLAC TROMETHAMINE 30 MG/ML VIAL IM STA (00:11)
[2020-01-30] MEDS ORDERED: TYLENOL WITH C1 EACH PO ×2 (00:14→00:32)
[2020-01-30] MEDS ORDERED: NAPROSYN500 MG PO (00:14)
[2020-01-30] MEDS ORDERED: KETOROLAC TROMETHAMINE 30 MG/ML VIAL ONE (00:41)
--- NOTE | 2020-01-30 01:38 | Diagnostic Imaging Report ---
X-ray right foot 3 views X-ray right ankle 3 views HISTORY: Pain. COMPARISON: None available. FINDINGS: Bones: No acute displaced fracture. Osseous alignment is within normal limits. Joints: The joint spaces are well-maintained. Soft tissues: Achilles tendon calcaneal enthesophyte. IMPRESSION: No acute radiographic abnormality. Achilles tendon calcaneal enthesopathy. Signed by: Philippe Karimi DO on 01/30/2020 1:35 AM
--- NOTE | 2020-01-30 01:39 | NUR ---
NOTED PT SITTING ON SIDE OF STRETCHER WITH BOTH FEET HANGING OFF SIDE OF BED. PT HAS BEEN DOING THIS THE LAST 5 TIMES I HAVE WENT IN THE ROOM WITH HER.
[2020-01-30 01:57] VITALS: BP 141/86
== END 2020-01-30 01:57 | disposition home or self-care (01) ==
LOC: FSED 23:54
DX: M25.571 Pain in right ankle and joints of right foot (principal); M76.61 Achilles tendinitis, right leg; I10 Essential (primary) hypertension
CPT/HCPCS: 73610; 73630; 96372; 99283; J1885

== ENCOUNTER 2020-09-30 18:17 | Inpatient (IN) | payer BC ==
[~2020-09-30] VITALS: Ht 165.1 cm; Wt 111.6 kg
[~2020-09-30 18:17] MED LIST changes: +NAPROSYN500 MG PO
[2020-09-30] MEDS ORDERED: ACETAMINOPHEN 325 MG TAB PO ONE (18:45)
[2020-09-30] MEDS ORDERED: ACETAMINOPHEN 325 MG TAB ONE (18:47)
[2020-09-30] MEDS ORDERED: LISINOPRIL10 MG PO (18:55)
[2020-09-30] MEDS ORDERED: HYDROCHLOROTHIA25 MG (18:55)
[2020-09-30] MEDS ORDERED: AMLODIPINE BESY10 MG PO (18:55)
[2020-09-30] MEDS ORDERED: AZITHROMYCIN 500MG/NS 250 ML 250 ML IV ONE (19:00)
[2020-09-30] MEDS ORDERED: DEXAMETHASONE SOD PHOS INJ 4 MG/ML VIAL ONE (19:14)
[2020-09-30] MEDS ORDERED: SODIUM CHLORIDE 0.9% 1000ML 1,000 ML ONE (19:14)
[2020-09-30] MEDS ORDERED: AZITHROMYCIN 500MG/NS 250 ML 250 ML ONE (19:14)
[2020-09-30] MEDS ORDERED: SODIUM CHLORIDE 0.9% 1000ML 1,000 ML IV SCH ×2 (19:15→21:00)
[2020-09-30] MEDS ORDERED: DEXAMETHASONE SOD PHOS INJ 4 MG/ML VIAL IV ONE (19:15)
[2020-09-30] MEDS ORDERED: MORPHINE SULFATE INJ 2 MG/ML SYR IV PRN (19:45)
[2020-09-30] MEDS ORDERED: ONDANSETRON HCL INJ 2MG/ML 2ML 2 MG/ML VIAL IV PRN (19:45)
[2020-09-30 20:40] VITALS: BP 128/71
[2020-09-30] MEDS ORDERED: KETOROLAC TROMETHAMINE 30 MG/ML VIAL IV STA (20:41)
[2020-09-30] MEDS ORDERED: KETOROLAC TROMETHAMINE 30 MG/ML VIAL ONE (20:49)
[2020-09-30] MEDS ORDERED: ENOXAPARIN SODIUM INJ 100 MG/ML SYR SC STA (22:04)
[2020-09-30] MEDS ORDERED: ENOXAPARIN SODIUM INJ 100 MG/ML SYR SC ONE (22:12)
[2020-09-30 23:39] VITALS: BP 128/71
[2020-09-30] MEDS ORDERED: SODIUM CHLORIDE 0.9% 50ML 50 ML ONE (23:39)
[2020-09-30] MEDS ORDERED: IOPAMIDOL 370 MG/ML 200 ML INFUS..BTL INJ ONE (23:39)
[2020-10-01] VITALS (7 sets, daily range): BP systolic 117–136; BP diastolic 71–91
[2020-10-01] MEDS ORDERED: LIPITOR10 MG PO (00:10)
[2020-10-01] MEDS: SODIUM CHLORIDE 0.9% 1000ML 1,000 ML IV SCH ×2 (00:25→03:45)
[2020-10-01] MEDS ORDERED: CEFTRIAXONE SOD 1 GM/NS 50 ML 50 ML IV ONE (01:00)
[2020-10-01] MEDS: CEFTRIAXONE SOD 1 GM/NS 50 ML 50 ML IV SCH (04:30)
[2020-10-01] MEDS: AZITHROMYCIN 500MG/NS 250 ML 250 ML IV SCH (05:02)
[2020-10-01] MEDS: DEXAMETHASONE SOD PHOS 10 MG/1 ML VIAL IV SCH (05:23)
[2020-10-01 06:28] LABS: BASOPHILS % 0.2 % (0.0-1.0); HEMATOCRIT 37.9 % (34.2-44.1); HEMOGLOBIN 12.3 g/dL (12.0-16.0); LYMPHOCYTES # (AUTO) 1.1 (1.0-3.2); LYMPHOCYTES % 18.8 % (18.0-39.1); MEAN CORPUSCULAR HEMOGLOBIN 29.9 pg (28-32); MEAN CORPUSCULAR HGB CONC 32.5 g/dL (31-35); MEAN CORPUSCULAR VOLUME 92.2 fL (81-99); MONOCYTES # (AUTO) 0.1 (0.2-0.8); MONOCYTES % 1.9 % (4.4-11.3); NEUTROPHILS # (AUTO) 4.5 (2.1-6.9); NEUTROPHILS % 78.4 % (38.7-80.0); PLATELET COUNT 228 x10e3/uL (140-360); RED BLOOD COUNT 4.11 x10e6/uL (3.6-5.1); RED CELL DISTRIBUTION WIDTH 14.9 % (11.7-14.4)
[2020-10-01 06:42] LABS: ALBUMIN 3.3 g/dL (3.5-5.0); ALBUMIN/GLOBULIN RATIO 0.8 (0.8-2.0); ANION GAP 15.8 mmol/L (8-16); CALCIUM 8.1 mg/dL (8.4-10.2); CREATININE, SERUM 1.4 mg/dL (0.57-1.11); POTASSIUM 3.8 mmol/L (3.5-5.1)
[2020-10-01] MEDS ORDERED: MORPHINE SULFATE INJ 4 MG/ML INJ 1ML IV PRN (07:00)
[2020-10-01] MEDS: AMLODIPINE BESYLATE 10 MG TAB PO SCH (08:14)
[2020-10-01] MEDS: LISINOPRIL 10 MG TAB PO SCH (08:14)
[2020-10-01] MEDS: ENOXAPARIN SOD INJ 40 MG/0.4 ML SYR SC SCH ×2 (08:15→20:54)
[2020-10-01 15:35] LABS: HIV 1&2 AB SCREEN NON-REACTIVE (NONREACTIVE)
[2020-10-01] MEDS: ATORVASTATIN 10 MG TAB PO SCH (20:54)
[2020-10-01] MEDS: ACETAMINOPHEN 325 MG TAB PO PRN (21:56)
[2020-10-01] MEDS: DIPHENHYDRAMINE HCL 25 MG CAP PO PRN (22:54)
[2020-10-02] VITALS (7 sets, daily range): BP systolic 107–129; BP diastolic 69–89
[2020-10-02] MEDS: CEFTRIAXONE SOD 1 GM/NS 50 ML 50 ML IV SCH (03:54)
[2020-10-02] MEDS: AZITHROMYCIN 500MG/NS 250 ML 250 ML IV SCH (03:56)
[2020-10-02] MEDS: ACETAMINOPHEN 325 MG TAB PO PRN ×3 (04:58→18:48)
[2020-10-02] MEDS: DEXAMETHASONE SOD PHOS 10 MG/1 ML VIAL IV SCH (05:10)
[2020-10-02 08:04] LABS: BASOPHILS % 0.1 % (0.0-1.0); HEMATOCRIT 35.6 % (34.2-44.1); HEMOGLOBIN 11.7 g/dL (12.0-16.0); LYMPHOCYTES % 7.3 % (18.0-39.1); MEAN CORPUSCULAR HEMOGLOBIN 30.3 pg (28-32); MEAN CORPUSCULAR HGB CONC 32.9 g/dL (31-35); MEAN CORPUSCULAR VOLUME 92.2 fL (81-99); MONOCYTES # (AUTO) 0.6 (0.2-0.8); MONOCYTES % 4.2 % (4.4-11.3); NEUTROPHILS # (AUTO) 12.4 (2.1-6.9); NEUTROPHILS % 87.6 % (38.7-80.0); PLATELET COUNT 314 x10e3/uL (140-360); RED BLOOD COUNT 3.86 x10e6/uL (3.6-5.1)
[2020-10-02 08:19] LABS: ANION GAP 14.9 mmol/L (8-16); CALCIUM 8.1 mg/dL (8.4-10.2); CREATININE, SERUM 1.2 mg/dL (0.57-1.11); POTASSIUM 3.9 mmol/L (3.5-5.1)
[2020-10-02] MEDS: AMLODIPINE BESYLATE 10 MG TAB PO SCH (08:57)
[2020-10-02] MEDS: ENOXAPARIN SOD INJ 40 MG/0.4 ML SYR SC SCH ×2 (08:58→20:49)
[2020-10-02] MEDS: LISINOPRIL 10 MG TAB PO SCH (08:58)
[2020-10-02] MEDS ORDERED: SODIUM CHLORIDE 0.9% 50ML 50 ML ONE (13:45)
[2020-10-02] MEDS ORDERED: IOPAMIDOL 370 MG/ML 200 ML INFUS..BTL INJ ONE (13:45)
[2020-10-02] MEDS: ATORVASTATIN 10 MG TAB PO SCH (20:48)
[2020-10-02] MEDS: DIPHENHYDRAMINE HCL 25 MG CAP PO PRN (22:38)
[2020-10-03] VITALS (8 sets, daily range): BP systolic 118–141; BP diastolic 85–96
[2020-10-03] MEDS: ACETAMINOPHEN 325 MG TAB PO PRN (04:19)
[2020-10-03] MEDS: CEFTRIAXONE SOD 1 GM/NS 50 ML 50 ML IV SCH (04:30)
[2020-10-03] MEDS: AZITHROMYCIN 500MG/NS 250 ML 250 ML IV SCH (04:30)
[2020-10-03] MEDS: DEXAMETHASONE SOD PHOS 10 MG/1 ML VIAL IV SCH ×2 (06:38→06:53)
[2020-10-03 06:54] LABS: BASOPHILS % 0.1 % (0.0-1.0); HEMATOCRIT 35.6 % (34.2-44.1); HEMOGLOBIN 11.8 g/dL (12.0-16.0); LYMPHOCYTES # (AUTO) 1.7 (1.0-3.2); MEAN CORPUSCULAR HEMOGLOBIN 30.4 pg (28-32); MEAN CORPUSCULAR HGB CONC 33.1 g/dL (31-35); MEAN CORPUSCULAR VOLUME 91.8 fL (81-99); MONOCYTES # (AUTO) 0.8 (0.2-0.8); MONOCYTES % 6.3 % (4.4-11.3); NEUTROPHILS # (AUTO) 10.5 (2.1-6.9); NEUTROPHILS % 78.4 % (38.7-80.0); PLATELET COUNT 380 x10e3/uL (140-360); RED BLOOD COUNT 3.88 x10e6/uL (3.6-5.1); RED CELL DISTRIBUTION WIDTH 15.1 % (11.7-14.4)
[2020-10-03 07:15] LABS: MAGNESIUM 2.5 MG/DL (1.3-2.1)
[2020-10-03 07:23] LABS: CREATINE KINASE MB 0.2 ng/mL (0-5.0)
[2020-10-03] MEDS: LISINOPRIL 10 MG TAB PO SCH (08:24)
[2020-10-03] MEDS: AMLODIPINE BESYLATE 10 MG TAB PO SCH (08:24)
[2020-10-03] MEDS: ENOXAPARIN SOD INJ 40 MG/0.4 ML SYR SC SCH ×2 (08:24→21:00)
[2020-10-03] MEDS ORDERED: ALBUTEROL SULFATE HFA 8GM INHALATION AEROSOL INH PRN (13:00)
[2020-10-03] MEDS ORDERED: GUAIFENESIN/CODEINE 10 ML CUP PO PRN (13:00)
[2020-10-03] MEDS: BENZONATATE 100 MG CAP PO SCH ×2 (14:31→21:00)
[2020-10-03] MEDS: ALBUTEROL SULFATE HFA 8GM INHALATION AEROSOL INH SCH ×3 (17:33→19:41)
[2020-10-03] MEDS: ATORVASTATIN 10 MG TAB PO SCH (21:00)
[2020-10-03] MEDS: DIPHENHYDRAMINE HCL 25 MG CAP PO PRN (23:39)
[2020-10-04] VITALS (7 sets, daily range): BP systolic 128–146; BP diastolic 87–99
[2020-10-04] MEDS: CEFTRIAXONE SOD 1 GM/NS 50 ML 50 ML IV SCH (04:12)
[2020-10-04] MEDS: AZITHROMYCIN 500MG/NS 250 ML 250 ML IV SCH (04:30)
[2020-10-04] MEDS: DEXAMETHASONE SOD PHOS 10 MG/1 ML VIAL IV SCH (05:42)
[2020-10-04] MEDS: ENOXAPARIN SOD INJ 40 MG/0.4 ML SYR SC SCH ×2 (09:30→20:49)
[2020-10-04] MEDS: BENZONATATE 100 MG CAP PO SCH ×3 (09:30→20:49)
[2020-10-04] MEDS: AMLODIPINE BESYLATE 10 MG TAB PO SCH (09:30)
[2020-10-04] MEDS: LISINOPRIL 10 MG TAB PO SCH (09:30)
[2020-10-04] MEDS: ALBUTEROL SULFATE HFA 8GM INHALATION AEROSOL INH SCH ×3 (10:51→20:57)
[2020-10-04] MEDS: ATORVASTATIN 10 MG TAB PO SCH (20:49)
[2020-10-04] MEDS: DIPHENHYDRAMINE HCL 25 MG CAP PO PRN (22:38)
[2020-10-05 00:26] VITALS: BP 136/92
[2020-10-05] MEDS: ALBUTEROL SULFATE HFA 8GM INHALATION AEROSOL INH SCH (01:10)
[2020-10-05] MEDS: AZITHROMYCIN 500MG/NS 250 ML 250 ML IV SCH (04:02)
[2020-10-05] MEDS: CEFTRIAXONE SOD 1 GM/NS 50 ML 50 ML IV SCH (05:05)
[2020-10-05] MEDS: DEXAMETHASONE SOD PHOS 10 MG/1 ML VIAL IV SCH (05:57)
[2020-10-05 06:30] VITALS: BP 130/92
[2020-10-05 08:00] VITALS: BP 134/91
[2020-10-05 08:16] VITALS: BP 134/91
[2020-10-05] MEDS: AMLODIPINE BESYLATE 10 MG TAB PO SCH (09:22)
[2020-10-05] MEDS: LISINOPRIL 10 MG TAB PO SCH (09:23)
[2020-10-05] MEDS: ENOXAPARIN SOD INJ 40 MG/0.4 ML SYR SC SCH (09:23)
[2020-10-05] MEDS: BENZONATATE 100 MG CAP PO SCH ×2 (09:23→15:24)
[2020-10-05 12:00] VITALS: BP 118/78
[2020-10-05] MEDS ORDERED: ONDANSETRON HCL 4 MG ORAL DISINTEGRATING TAB PO PRN (12:45)
[2020-10-05 16:00] VITALS: BP 116/88
[2020-10-06] MEDS ORDERED: AZITHROMYCIN 250 MG TAB PO SCH (04:00)
== END 2020-10-05 16:05 | disposition home or self-care (01) | DRG 193 ==
LOC: FSED 18:41 → ERHOLD 19:40 → MED/SURG3 22:34
PROVIDERS: ADMIT Internal Medicine; ATTEND Internal Medicine
DX: J15.9 Unspecified bacterial pneumonia (principal); J96.01 Acute respiratory failure with hypoxia; Z68.41 Body mass index [BMI] 40.0-44.9, adult; E66.01 Morbid (severe) obesity due to excess calories; Z20.822 Contact with and (suspected) exposure to COVID-19; R05 Cough; E78.5 Hyperlipidemia, unspecified; I12.9 Hypertensive chronic kidney disease with stage 1 through stage 4 chronic kidney disease, or unspecified chronic kidney disease; N18.30 Chronic kidney disease, stage 3 unspecified; E78.00 Pure hypercholesterolemia, unspecified
CPT/HCPCS: 36415; 71045; 71260; 80048; 80053; 82550; 82553; 83735; 84484; 85025; 86631; 86738; 87040; 87086; 87390; 87400; 87449; 87536; 99251; 99284; G0433; G0435; J0456; J0696; J1100; J1650; J1885; J2270; J7030; Q9967; U0002

== ENCOUNTER 2020-10-24 12:12 | Emergency (ER) | payer BC ==
[~2020-10-24] VITALS: Ht 165.1 cm; Wt 111.6 kg
[~2020-10-24 12:12] MED LIST changes: +AMLODIPINE BESY10 MG PO; +HYDROCHLOROTHIA25 MG; +LIPITOR10 MG PO; +LISINOPRIL10 MG PO
[2020-10-24] MEDS ORDERED: DILTIAZEM HCL 5 MG/ML 5 ML VIAL IV STA ×2 (12:48→12:54)
[2020-10-24] MEDS ORDERED: DILTIAZEM HCL VIAL 5 ML ONE (12:56)
[2020-10-24] MEDS ORDERED: SODIUM CHLORIDE 0.9% 50ML 50 ML ONE (13:18)
[2020-10-24] MEDS ORDERED: IOPAMIDOL 370 MG/ML 200 ML INFUS..BTL INJ ONE (13:18)
[2020-10-24] MEDS ORDERED: POTASSIUM CHLORIDE 20 MEQ TAB CR PO STA (14:11)
== END 2020-10-24 15:52 | disposition short-term general hospital (02) ==
LOC: FSED 12:24
DX: I47.1 Supraventricular tachycardia (principal); R00.2 Palpitations; I10 Essential (primary) hypertension
CPT/HCPCS: 71045; 71260; 80053; 81003; 82553; 84484; 85025; 93005; 99284; Q9967; U0002